=== PATIENT | male | born 1945 | race Hispanic/Latino ===

== ENCOUNTER 2016-11-09 18:20 | Emergency (ER) | payer MEDICARE, OTHER ==
[2016-11-09 18:32] VITALS: BP 142/67; PULSE 78; RESP 16; TEMP 98.9; O2SAT 100
--- NOTE | 2016-11-09 19:04 | ED PDOC ---
HPI: General Adult Time Seen by Provider: 11/09/16 18:30 Chief Complaint (Nursing): Trauma Chief Complaint (Provider): ead injury History Per: Patient History/Exam Limitations: no limitations Additional Complaint(s): 71yo M in ED for eval of head injury occurred while in Hospital on ICU floor from slpped water. Pt had Dementia and CVA hx. Pt slipped landing on right side of body and right side of frontal aspect of head. negative for: nausea vomiting dizziness headache LOC vision change neck pain chest pain shortness of breath Past Medical History Reviewed: Historical Data, Nursing Documentation, Vital Signs Vital Signs: Last Vital Signs Temp 98.9 F 11/09/16 18:30 Pulse 78 11/09/16 18:30 Resp 16 11/09/16 18:30 BP 142/67 11/09/16 18:30 Pulse Ox 100 11/09/16 18:30 - Medical History PMH: CAD, Dementia, HTN - Family History Family History: States: No Known Family Hx - Allergies Allergies/Adverse Reactions: Allergies Allergy/AdvReac Type Severity Reaction Status Date / Time No Known Allergies Allergy Verified 11/09/16 18:27 Review of Systems ROS Statement: Except As Marked, All Systems Reviewed And Found Negative Constitutional: Negative for: Fever, Chills Neurological: Negative for: Weakness, Numbness, Incoordination, Change in Speech , Confusion, Seizures, Altered Mental Status, Headache, Dizziness Psych: Negative for: Withdrawal Physical Exam - Reviewed Nursing Documentation Reviewed: Yes Vital Signs Reviewed: Yes - Physical Exam Appears: Positive for: Well, Non-toxic, No Acute Distress Head Exam: Positive for: ATRAUMATIC, NORMAL INSPECTION, NORMOCEPHALIC Skin: Positive for: Normal Color, Warm Eye Exam: Positive for: EOMI, Normal appearance, PERRL Cardiovascular/Chest: Positive for: Regular Rate, Rhythm Respiratory: Positive for: CNT, Normal Breath Sounds Neurologic/Psych: Positive for: Alert, Oriented - ECG O2 Sat by Pulse Oximetry: 100 - Progress ED Course And Treament: PT states he feels well. d/c home with ice pack to area advised to use precaution and take only Tylenol for pain and if with nuero deficits to return to ED Medical Decision Making Medical Decision Making: Pt d/c home with instructions. Disposition - Clinical Impression Clinical Impression: Head injury - Patient ED Disposition Is Patient to be Admitted: No Counseled Patient/Family Regarding: Need For Followup - Disposition Disposition: Routine/Home Disposition Time: 20:18 Condition: GOOD Instructions: Head Injury (ED)
== END 2016-11-09 18:50 | disposition home or self-care (01) ==
LOC: H.ER 18:20
DX: S09.90XA Unspecified injury of head, initial encounter (principal); W01.0XXA Fall on same level from slipping, tripping and stumbling without subsequent striking against object, initial encounter; Y92.89 Other specified places as the place of occurrence of the external cause; F03.90 Unspecified dementia, unspecified severity, without behavioral disturbance, psychotic disturbance, mood disturbance, and anxiety; I10 Essential (primary) hypertension; I25.10 Atherosclerotic heart disease of native coronary artery without angina pectoris; Z86.73 Personal history of transient ischemic attack (TIA), and cerebral infarction without residual deficits

== ENCOUNTER 2017-03-06 19:17 | Inpatient (IN) | payer MEDICARE, OTHER ==
[2017-03-06] MEDS ORDERED: Albuterol-Ipratrop 3 mg / 0.5 (3 ml) UD INH STA ×2 (20:02)
[2017-03-06] MEDS ORDERED: Albuterol-Ipratrop 3 mg / 0.5 (3 ml) UD ONE ×2 (20:10→20:12)
[2017-03-06 20:38] LABS: BASO # 0.1 K/uL (0.0-0.2); BASO % 0.3 % (0.0-2.0); EOS % 0.1 % (0.0-4.0); HEMATOCRIT 44.2 % (35.0-51.0); LYMPH # 0.7 K/uL (1.0-4.3); LYMPH % 3.5 % (20.0-40.0); MEAN CELL VOLUME 89.9 fl (80.0-94.0); MEAN CORPUSCULAR HEMOGLOBIN 31.1 pg (27.0-31.0); MEAN CORPUSCULAR HGB CONC 34.6 g/dL (33.0-37.0); MONO # 1.3 K/uL (0.0-0.8); MONO % 6.1 % (0.0-10.0); NEUT # 18.8 K/uL (1.8-7.0); NRBC % 0.1 % (0.0-0.0); PLATELET COUNT 209 K/uL (130-400); RED CELL DISTRIBUTION WIDTH 13.5 % (11.5-14.5); WHITE BLOOD COUNT 20.9 K/uL (4.8-10.8)
[2017-03-06 20:45] LABS: PARTIAL THROMBOPLASTIN TIME 25.6 Seconds (25.6-37.1)
[2017-03-06 20:46] LABS: ALB/GLOB RATIO 1.4 (1.0-2.1); ALKALINE PHOSPHATASE 116 U/L (38-126); ALT/SGPT 138 U/L (21-72); AST/SGOT 72 U/L (17-59); BILIRUBIN,TOTAL 2.2 mg/dl (0.2-1.3); BLOOD UREA NITROGEN 19 mg/dl (9-20); CALCIUM 10.2 mg/dL (8.4-10.2); CARBON DIOXIDE 24 mmol/L (22-30); CHLORIDE 104 mmol/L (98-107); GFR AFRICAN-AMERICAN > 60; GLUCOSE,RANDOM 184 mg/dL (75-110); POTASSIUM 4.2 MMOL/L (3.6-5.0); SODIUM 141 mmol/l (132-148); TOTAL PROTEIN 7.5 G/DL (6.3-8.2)
[2017-03-06] MEDS ORDERED: Clindamycin 150 mg/mL Inj IV STA (20:46)
--- NOTE | 2017-03-06 20:54 | ED PDOC ---
HPI: SOB/CHF/COPD Time Seen by Provider: 03/06/17 19:30 Chief Complaint (Nursing): Weakness/Neurological Deficit Chief Complaint (Provider): Shortness of breath History Per: Family History/Exam Limitations: clinical condition (history limited due to patient demented state) Onset/Duration Of Symptoms: Days Current Symptoms Are (Timing): Still Present Associated Symptoms: Productive Cough Additional Complaint(s): Yaron Lee SR, a 72 year old male, who is largely bed bound with a past medical history of diabetes, dementia, chronic obstructive pulmonary disease and ALS is brought into the ED by his family for a cough. As per family, the cough has become worse over the past few days and has been associated with poor appetite. His family notes, that he is also short of breath at times. The family state that they had more reason for concern when they checked his diastolic blood pressure and it was noted to be in the thirties. Family also notes that the patient's urine has been dark. PMD: Dr. Colunga,Devin V Past Medical History Reviewed: Historical Data, Nursing Documentation, Vital Signs Vital Signs: Last Vital Signs Temp 97.8 F 03/07/17 00:00 Pulse 87 03/07/17 00:00 Resp 19 03/07/17 00:00 BP 131/66 03/07/17 00:00 Pulse Ox 95 03/07/17 00:00 - Medical History PMH: CAD, COPD, Dementia, Diabetes, HTN Other PMH: ALS - Surgical History Surgical History: No Surg Hx - Family History Family History: States: Unknown Family Hx - Living Arrangements Living Arrangements: With Family - Social History Current smoker - smoking cessation education provided: No Ex-Smoker (has not smoked in the last 12 months): No Alcohol: None Drugs: Denies - Home Medications Home Medications: Ambulatory Orders Medication Instructions Recorded Aspirin [Ecotrin] 81 mg PO DAILY 03/06/17 Metoprolol Succinate [Toprol XL] 50 mg PO DAILY 03/06/17 Rivastigmine 9.5 mg/24 hr [Exelon 1 gonzales TD DAILY 03/06/17 9.5 mg/24 hr Patch] glyBURIDE [Glynase Pres-Tab] 3 mg PO DAILY 03/06/17 - Allergies Allergies/Adverse Reactions: Allergies Allergy/AdvReac Type Severity Reaction Status Date / Time No Known Allergies Allergy Verified 03/06/17 20:40 Review of Systems ROS Statement: Except As Marked, All Systems Reviewed And Found Negative Constitutional: Positive for: Weakness, Other (poor appetite) Respiratory: Positive for: Cough, Shortness of Breath Physical Exam - Reviewed Nursing Documentation Reviewed: Yes Vital Signs Reviewed: Yes - Physical Exam Appears: Positive for: Non-toxic, No Acute Distress Head Exam: Positive for: ATRAUMATIC, NORMAL INSPECTION, NORMOCEPHALIC Skin: Positive for: Normal Color, Warm, Dry. Negative for: Rash Eye Exam: Positive for: Normal appearance, EOMI, PERRL ENT: Negative for: Normal ENT Inspection (mucous membranes dry) Neck: Positive for: Normal, Painless ROM, Supple Cardiovascular/Chest: Positive for: Regular Rate, Rhythm, Chest Non Tender. Negative for: Tachycardia Respiratory: Positive for: Wheezing (expiratory wheezing at the bases b/l). Negative for: Normal Breath Sounds, Rales, Rhonchi, Respiratory Distress Gastrointestinal/Abdominal: Positive for: Normal Exam, Bowel Sounds, Soft. Negative for: Tenderness, Guarding, Rebound Back: Positive for: Normal Inspection. Negative for: L CVA Tenderness, R CVA Tenderness Extremity: Positive for: Normal ROM, Other (atrophy of muscular tone, generalized weakness-chronic). Negative for: Tenderness, Deformity, Swelling Lymphatic: Positive for: Normal Exam. Negative for: Adenopathy Neurologic/Psych: Positive for: Alert, Oriented. Negative for: Motor/Sensory Deficits - Laboratory Results Result Diagrams: 03/06/17 20:29 03/06/17 20:29 - ECG O2 Sat by Pulse Oximetry: 95 (RA) Pulse Ox Interpretation: Normal Medical Decision Making Medical Decision Makin Initial Impression 72 y/o male presenting with dyspnea worsening functional status in setting of ALS and COPD Initial Plan: * EKG * B-type natriuretic * CMP * Lact Acid, Plasma * Troponin * CBC * PTT * Prothrombin Time * CXR * Cleocin 600mg IV * Albuterol 3ml INH * Rocephin 1gm NS 100ml IVPB * Blood culture * Peak Flow pre/post .Tx * Reevaluation 2044 - Update Labs reviewed show no clinically significant abnormalities with exception of elevated white blood cell count. CXR significant for right lower lobe and possible middle lobe infiltrates. In providers opinion patient may have had aspiration earlier. Patient will be given antibiotics for pneumonia. Dr. Colunga referred case to hospitalist service. Diagnosis: Pneumonia Condition: Stable Family has requested a home hospice consultation which has been communicated to Dr. Herring Scribe Attestation Documented by Kim Beltre acting as a scribe for Alcides Arshad MD. Provider Attestation All medical record entries made by the Scribe were at my direction and personally dictated by me. I have reviewed the chart and agree that the record accurately reflects my personal performance of the history, physical exam, medical decision making, and the department course for this patient. I have also personally directed, reviewed, and agree with the discharge instructions and disposition. Disposition - Clinical Impression Clinical Impression: Pneumonia, ALS (amyotrophic lateral sclerosis), COPD (chronic obstructive pulmonary disease) - Patient ED Disposition Is Patient to be Admitted: Yes Discussed With DrMarlo: Devin Colunga (Dr Herring) Doctor Will See Patient In The: Hospital Counseled Patient/Family Regarding: Studies Performed, Diagnosis - Disposition Disposition Time: 20:45 Condition: FAIR - Pt Status Changed To: Hospital Disposition Of: Inpatient - Admit Certification Admit to Inpatient:: After my assessment, the patient will require hospitalization for at least two midnights. This is because of the severity of symptoms shown, intensity of services needed, and/or the medical risk in this patient being treated as an outpatient.
[2017-03-06] MEDS ORDERED: Azithromycin 500 MG in Sodium Chloride 0.9% 250 ML IVPB STA (20:55)
[2017-03-06] MEDS ORDERED: Clindamycin 600mg/50ml NS 600 MG/50 ML BAG IVPB SCH (21:00)
[2017-03-06] MEDS ORDERED: cefTRIAXone 1 gm in cefTRIAXone IV 1 gm in Dextros 50 ML IVPB STA (21:15)
[2017-03-06] MEDS ORDERED: cefTRIAXone IV 1 gm in Dextros 50 ML IVPB STA (21:15)
--- NOTE | 2017-03-06 21:30 | CP.PCM.HP ---
History of Present Illness - History of Present Illness History of Present Illness: Chief Complaint: Coughing/Lethargy/ low blood pressure The patient was seen and examined in the ED with the Family present HPI: The Hx was obtained from the family as the patient is non verbal. He is a 72 years old male with hx of ALS, Dementia, COPD, and DM II and is bed bound. the family referred that the patient's cough has become worse over the past days and he has difficulty to swallow. On the day of admission the patient appeared lethargic with diaphoresis. The blood Pressure taken at that time was low with a DBP of 30mmHg associated with SOB. The EMS was called and the patient was brought to the ED. No fever, diarrhea. PMH: CAD; COPD; ALS; Dementia; HTN; DM II; PSH: Arthroscopic surgery to both knees; Rods and pins in the Right leg; Cardio cath with no stents placed SH: No illegal drug use; Never smoked; Alcohol use in the past; Live with the Family; Retired FH: No known family Hx Allergies: NKDA Medication: Reviewed Present on Admission - Present on Admission Any Indicators Present on Admission: No History of DVT/PE: No History of Uncontrolled Diabetes: No Urinary Catheter: No Decubitus Ulcer Present: No Review of Systems - Review of Systems Review of Systems: Review of systems is limited as the patient is non verbal with dementia - Respiratory Respiratory: Cough, Dyspnea Past Patient History - Past Medical History & Family History Past Medical History?: Yes - Past Social History Smoking Status: Never Smoked Chewing Tobacco Use: No Cigar Use: No Alcohol: None Drugs: Denies Home Situation {Lives}: With Family - CARDIAC Hx Hypertension: Yes - PULMONARY Hx Chronic Obstructive Pulmonary Disease (COPD): Yes - NEUROLOGICAL Hx Dementia: Yes Other/Comment: ALS - HEENT Hx HEENT Problems: No - RENAL Hx Chronic Kidney Disease: No - ENDOCRINE/METABOLIC Hx Diabetes Mellitus Type 2: Yes - HEMATOLOGICAL/ONCOLOGICAL Hx Blood Disorders: No - INTEGUMENTARY Hx Dermatological Problems: No - MUSCULOSKELETAL/RHEUMATOLOGICAL Hx Musculoskeletal Disorders: No - GASTROINTESTINAL Hx Gastrointestinal Disorders: No - GENITOURINARY/GYNECOLOGICAL Hx Genitourinary Disorders: No - PSYCHIATRIC Hx Psychophysiologic Disorder: No Hx Substance Use: No - SURGICAL HISTORY Hx Surgeries: Yes Hx Angioplasty: Yes - ANESTHESIA Hx Anesthesia: Yes Hx Anesthesia Reactions: No Meds Allergies/Adverse Reactions: Allergies Allergy/AdvReac Type Severity Reaction Status Date / Time No Known Allergies Allergy Verified 03/06/17 20:40 Physical Exam - Constitutional Appears: No Acute Distress - Head Exam Head Exam: ATRAUMATIC, NORMAL INSPECTION, NORMOCEPHALIC - Eye Exam Eye Exam: EOMI, Normal appearance Pupil Exam: NORMAL ACCOMODATION, PERRL - ENT Exam ENT Exam: Mucous Membranes Moist, Normal External Ear Exam - Neck Exam Neck exam: Positive for: Full Rom, Normal Inspection. Negative for: Lymphadenopathy, Tenderness - Respiratory Exam Additional comments: Transmitted breath sounds bilaterally - Cardiovascular Exam Cardiovascular Exam: REGULAR RHYTHM, RRR, +S1, +S2. absent: Gallop, JVD - GI/Abdominal Exam GI & Abdominal Exam: Normal Bowel Sounds, Soft. absent: Mass, Organomegaly, Tenderness - Rectal Exam Rectal Exam: Deferred - Extremities Exam Extremities exam: Positive for: normal inspection. Negative for: joint swelling , pedal edema - Back Exam Back exam: NORMAL INSPECTION - Neurological Exam Additional comments: Non verbal, no facial droop, moves both upper extremitiesNot moving the lower extremities at this time, Cannot follow commands. - Psychiatric Exam Psychiatric exam: Flat Affect - Skin Skin Exam: Dry, Intact, Normal Color, Warm Results - Vital Signs Recent Vital Signs: Last Vital Signs Temp 97.2 F L 03/06/17 20:53 Pulse 85 03/06/17 20:53 Resp 18 03/06/17 20:53 BP 118/75 03/06/17 20:53 Pulse Ox 95 03/06/17 21:26 - Labs Result Diagrams: 03/06/17 20:29 03/06/17 20:29 Labs: Laboratory Results - last 24 hr 03/06/17 03/06/17 03/06/17 19:48 20:29 20:29 WBC 20.9 H D RBC 4.91 Hgb 15.3 Hct 44.2 MCV 89.9 MCH 31.1 H MCHC 34.6 RDW 13.5 Plt Count 209 MPV 9.0 Neut % (Auto) 90.0 H Lymph % (Auto) 3.5 L Graham % (Auto) 6.1 Eos % (Auto) 0.1 Baso % (Auto) 0.3 Neut # 18.8 H Lymph # 0.7 L Graham # 1.3 H Eos # 0.0 Baso # 0.1 PT INR APTT Sodium 141 Potassium 4.2 Chloride 104 Carbon Dioxide 24 Anion Gap 17 BUN 19 Creatinine 0.8 Est GFR ( Amer) > 60 Est GFR (Non-Af Amer) > 60 POC Glucose (mg/dL) 187 H Random Glucose 184 H Lactic Acid Calcium 10.2 Total Bilirubin 2.2 H AST 72 H ALT 138 H D Alkaline Phosphatase 116 Troponin I < 0.0120 NT-Pro-B Natriuret Pep 122 Total Protein 7.5 Albumin 4.3 Globulin 3.1 Albumin/Globulin Ratio 1.4 03/06/17 03/06/17 20:29 20:29 WBC RBC Hgb Hct MCV MCH MCHC RDW Plt Count MPV Neut % (Auto) Lymph % (Auto) Graham % (Auto) Eos % (Auto) Baso % (Auto) Neut # Lymph # Graham # Eos # Baso # PT 12.2 INR 1.1 APTT 25.6 Sodium Potassium Chloride Carbon Dioxide Anion Gap BUN Creatinine Est GFR ( Amer) Est GFR (Non-Af Amer) POC Glucose (mg/dL) Random Glucose Lactic Acid 2.0 Calcium Total Bilirubin AST ALT Alkaline Phosphatase Troponin I NT-Pro-B Natriuret Pep Total Protein Albumin Globulin Albumin/Globulin Ratio - EKG Data EKG comments: NSR with artifact 86/min - Imaging and Cardiology Chest x-ray Status: Image reviewed by me Additional comment: RLL infiltrate Assessment & Plan - Assessment and Plan (Free Text) Assessment: #. Aspiration pneumonia #. Leukocytosis 3. DM II with hyperglycemia #. Dementia #. ALS Plan: 72 years old male with hx of ALS, Dementia, COPD, and DM II and is bed bound. The family referred that the patient's cough has become worse over the past days and he has difficulty to swallow. On the day of admission he appeared lethargic with diaphoresis, the blood Pressure taken at that time was low with a DBP of 30mmHg associated with SOB. The EMS was called and the patient was brought to the ED. No fever, diarrhea. #. Aspiration pneumonia - Consult Dr knowles Pulmonary - Consult Dr Washington ID - Swallow Evaluation - Duoneb - Azithromycin - Ceftriaxone - Vancomycin - follow Blood and urine coutures - #. Leukocytosis - follow WBC #. DM II with hyperglycemia - Aspart Insulin Sliding scale according to Accucheck - Glyburide - HbA1c #. Dementia - Rivastigmine #. ALS - Supportive treatment - PT/OT - Palliative consult - Hospice consult #. CAD - consult Dr Colunga Cardiology - ASA #. DVT prophylaxis with SCD and Lovenox #. Code Status: Full - Date & Time Date: 03/06/17 Time: 21:30
[2017-03-06] MEDS ORDERED: Sodium Chloride 0.9% 1,000 ML IV STA (21:36)
[2017-03-06 21:41] LABS: NEUTROPHIL 94 % (42-75); REACTIVE LYMPHOCYTES 1 % (0-0); TOTAL CELLS COUNTED 100
[2017-03-06] MEDS ORDERED: cefTRIAXone IV 1 gm in Dextros 50 ML IVPB ONE (22:08)
[2017-03-06] MEDS ORDERED: Dextrose 5%/0.45% NS 1,000 ML IV SCH (23:15)
[2017-03-07] MEDS ORDERED: Clindamycin 600mg/50ml NS 600 MG/50 ML BAG IVPB STA (01:26)
[2017-03-07] MEDS: Dextrose 5%/0.45% NS 1,000 ML IV SCH ×4 (02:24→22:16)
[2017-03-07] MEDS: Albuterol-Ipratrop 3 mg / 0.5 (3 ml) UD INH SCH ×4 (02:48→19:11)
[2017-03-07] MEDS ORDERED: Insulin Lispro (humaLOG) 100 Units/ml Inj SC SCH (03:15)
[2017-03-07 06:27] LABS: ALB/GLOB RATIO 1.4 (1.0-2.1); ALKALINE PHOSPHATASE 108 U/L (38-126); ALT/SGPT 118 U/L (21-72); AST/SGOT 53 U/L (17-59); BILIRUBIN,TOTAL 2.3 mg/dl (0.2-1.3); BLOOD UREA NITROGEN 17 mg/dl (9-20); CALCIUM 9.8 mg/dL (8.4-10.2); CARBON DIOXIDE 24 mmol/L (22-30); CHLORIDE 107 mmol/L (98-107); GFR AFRICAN-AMERICAN > 60; GLUCOSE,RANDOM 164 mg/dL (75-110); POTASSIUM 3.6 MMOL/L (3.6-5.0); SODIUM 142 mmol/l (132-148)
[2017-03-07 06:28] LABS: BASO # 0.1 K/uL (0.0-0.2); BASO % 0.5 % (0.0-2.0); HEMATOCRIT 43.4 % (35.0-51.0); LYMPH # 1.2 K/uL (1.0-4.3); LYMPH % 6.7 % (20.0-40.0); MEAN CELL VOLUME 89.4 fl (80.0-94.0); MEAN CORPUSCULAR HEMOGLOBIN 30.6 pg (27.0-31.0); MEAN CORPUSCULAR HGB CONC 34.3 g/dL (33.0-37.0); MONO # 1.1 K/uL (0.0-0.8); MONO % 6.1 % (0.0-10.0); NEUT # 16.1 K/uL (1.8-7.0); NEUT % 86.7 % (50.0-75.0); NRBC % 0.1 % (0.0-0.0); RED CELL DISTRIBUTION WIDTH 13.6 % (11.5-14.5); WHITE BLOOD COUNT 18.6 K/uL (4.8-10.8)
[2017-03-07] MEDS: Insulin Lispro (humaLOG) 100 Units/ml Inj SC SCH ×3 (06:39→17:24)
--- NOTE | 2017-03-07 07:59 | CP.PCM.PN ---
Subjective - Date & Time of Evaluation Date of Evaluation: 03/07/17 Time of Evaluation: 07:59 - Subjective Subjective: patient seen and examined at bedside for likely aspiration pneumonia. Discussed with Drs. Strong and Keanu, patient has rapidly progressive dementia, bed bound, mildly verbal, dysarthric. Patient is HD stable, tolerating IV RX well. no apparent distress. Objective - Vital Signs/Intake and Output Vital Signs (last 24 hours): Temp Pulse Resp BP Pulse Ox 98.1 F 109 H 20 109/69 94 L 03/07/17 07:47 03/07/17 07:47 03/07/17 07:47 03/07/17 07:47 03/07/17 07:47 Physical exam: Constitutional- BEDBOUND, NONVERBAL awake, alert. Head- NCAT, PERRL Eye- PERRL, normal accommodation ENT- normal exam, MMM. Neck- normal inspection, supple, no JVD Respiratory- CTAB, no wheezes rales rhonchi Cardiovascular- RRR, +S1, +S2 no MRG GI/Abdominal- normal bowel sounds, soft, no mass, no hsm Skin- warm, dry Extremities Exam- normal capillary refill, normal inspection Neurological Exam- BEDBOUND, NONVERBAL. Psych- unable to assess secondary to dementia - Medications Medications: Current Medications Albuterol/Ipratropium (Duoneb 3 Mg/0.5 Mg (3 Ml) Ud) 3 ml INH RQ6 DYLAN Last Admin: 03/07/17 07:47 Dose: 3 ml Aspirin (Ecotrin) 81 mg PO DAILY DYLAN Enoxaparin Sodium (Lovenox) 40 mg SC DAILY DYLAN PRN Reason: Protocol Home Med (Glyburide [Glynase Pres-Tab]) 3 mg PO DAILY [facility] Ceftriaxone Sodium (Rocephin Iv 1 Gm Duplex) 50 mls @ 50 mls/hr IVPB DAILY DYLAN PRN Reason: Protocol Azithromycin 500 mg/ Sodium (Chloride) 250 mls @ 250 mls/hr IVPB DAILY DYLAN PRN Reason: Protocol Vancomycin HCl 1 gm/ Sodium (Chloride) 250 mls @ 166.667 mls/hr IVPB Q12 DYLAN PRN Reason: Protocol Dextrose/Sodium Chloride (Dextrose 5%/0.45% Ns 1000 Ml) 1,000 mls @ 150 mls/hr IV .Q6H40M [facility] Stop: 03/07/17 23:08 Last Admin: 03/07/17 02:24 Dose: 150 mls/hr Insulin Human Lispro (Humalog) 0 units SC 0000,0600,1200,1800 DYLAN PRN Reason: Protocol Last Admin: 03/07/17 06:39 Dose: Not Given Metoprolol Succinate (Toprol Xl) 50 mg PO DAILY [facility] Rivastigmine (Exelon 9.5 Mg/24 Hr Patch) 1 patch TD DAILY [facility] Scopolamine (Transderm-Scop) 1 patch TD Q3D DYLAN Last Admin: 03/07/17 01:35 Dose: 1 patch - Labs Labs: 03/07/17 05:25 03/07/17 05:25 PT 12.2 Seconds (9.8-13.1) 03/06/17 20:29 INR 1.1 (0.9-1.2) 03/06/17 20:29 APTT 25.6 Seconds (25.6-37.1) 03/06/17 20:29 Assessment and Plan - Assessment and Plan (Free Text) Plan: 2 years old male with hx of ALS, Dementia, COPD, and DM II and is bed bound. The family referred that the patient's cough has become worse over the past days and he has difficulty to swallow. On the day of admission he appeared lethargic with diaphoresis, the blood Pressure taken at that time was low with a DBP of 30mmHg associated with SOB. The EMS was called and the patient was brought to the ED. No fever, diarrhea. #. Aspiration pneumonia LLL - Consult Dr strong Pulmonary - Consult Dr Washington ID - Swallow Evaluation - Duoneb - Azithromycin, ceftriaxone, vancomycin adjusted to UNASYN today for aspiration pneumonia - follow Blood and urine coutures - Sputum cx ordered today #. Leukocytosis - follow WBC - likely from pna #. DM II with hyperglycemia - Aspart Insulin Sliding scale according to Accucheck - Glyburide - HbA1c #. Dementia - Rivastigmine - Neuro cx Dr. Le #. ALS - Supportive treatment - PT/OT - Palliative consult - Hospice consult - Neuro cx, Dr. Le #. CAD - consult Dr Colunga Cardiology - ASA #. DVT prophylaxis with SCD and Lovenox #. Code Status: Full
[2017-03-07] MEDS ORDERED: GLYBURIDE 3 MG PO SCH (09:00)
[2017-03-07] MEDS ORDERED: cefTRIAXone IV 1 gm in Dextros 50 ML IVPB SCH (09:00)
[2017-03-07] MEDS: Enoxaparin 40 mg Syringe SC SCH (09:07)
[2017-03-07] MEDS: Metoprolol Succinate 50 mg XL Tab PO SCH (09:09)
[2017-03-07] MEDS ORDERED: Sodium Chloride 3% for Inhalation 4 ML VIAL.NEB IH PRN (09:26)
--- NOTE | 2017-03-07 10:36 | CP.PCM.CON ---
History of Present Illness - History of Present Illness History of Present Illness: Yaron Lee is a pleasant 72 yo male with a PMHx of COPD, pneumonia, HTN, CAD, TIA, ALS, dementia, DMII, herpes zoster, hiatial hernia who presented to the ED with chronic cough and hypotension and admitted under the impression of aspiration pneumonia. On CXR, he was noted to have a RLL infiltrate with an elevated white count. We were consulted to evaluate and treat his aspiration pneumonia and assess his pulmonary function/stability. Treatment plan included: duonebs, Azithromycin, Cefriaxone, and Vancomycin. Patient was seen and evaluated at bedside lying at 45 degrees comfortably on 2L NC. He has a phlegmatous cough, which he is unable to produce sputum. He is alert and slightly responsive, however he is communicating non verbally. Review of Systems - Review of Systems Systems not reviewed;Unavailable: Dementia, Other (nonverbal) - Constitutional Constitutional: As Per HPI Past Patient History - Past Medical History & Family History Past Medical History?: Yes Pertinent Family History: Mother: CAD with bypass Father: CAD with bypass, cerebral aneurysm Brother: liver transplant, diabetes Sister: TIA Sister: COPD - Past Social History Smoking Status: Former Smoker Alcohol: None Drugs: Denies - CARDIAC Hx Cardiac Disorders: Yes (CAD) Hx Hypertension: Yes - PULMONARY Hx Chronic Obstructive Pulmonary Disease (COPD): Yes Hx Emphysema: Yes (Emphysematous changes ) Hx Pneumonia: Yes - NEUROLOGICAL Hx Neurological Disorder: Yes (ALS) Hx Dementia: Yes Hx Transient Ischemic Attacks (TIA): Yes - HEENT Hx HEENT Problems: No - RENAL Hx Chronic Kidney Disease: No - ENDOCRINE/METABOLIC Hx Diabetes Mellitus Type 2: Yes - HEMATOLOGICAL/ONCOLOGICAL Hx Blood Disorders: No - INTEGUMENTARY Hx Dermatological Problems: No - MUSCULOSKELETAL/RHEUMATOLOGICAL Hx Degenerative Joint Disease: Yes (bl knee) - GASTROINTESTINAL Hx Gastroesophageal Reflux: Yes (hiatus hernia) - GENITOURINARY/GYNECOLOGICAL Hx Genitourinary Disorders: No - PSYCHIATRIC Hx Psychophysiologic Disorder: No Hx Substance Use: No - SURGICAL HISTORY Hx Surgeries: Yes Hx Angioplasty: Yes Other/Comment: PTCA w/o stent x2; fracture R elbow; Arthroscopic surgery bl knee - ANESTHESIA Hx Anesthesia: Yes Hx Anesthesia Reactions: No Meds Allergies/Adverse Reactions: Allergies Allergy/AdvReac Type Severity Reaction Status Date / Time No Known Allergies Allergy Verified 03/06/17 20:40 - Medications Medications: Current Medications Albuterol/Ipratropium (Duoneb 3 Mg/0.5 Mg (3 Ml) Ud) 3 ml INH RQ6 [facility] Last Admin: 03/07/17 07:47 Dose: 3 ml Aspirin (Ecotrin) 81 mg PO DAILY [facility] Last Admin: 03/07/17 09:04 Dose: Not Given Enoxaparin Sodium (Lovenox) 40 mg SC DAILY [facility] PRN Reason: Protocol Last Admin: 03/07/17 09:07 Dose: 40 mg Home Med (Glyburide [Glynase Pres-Tab]) 3 mg PO DAILY [facility] Dextrose/Sodium Chloride (Dextrose 5%/0.45% Ns 1000 Ml) 1,000 mls @ 150 mls/hr IV .Q6H40M [facility] Stop: 03/07/17 23:08 Last Admin: 03/07/17 09:04 Dose: 150 mls/hr Ampicillin Sodium/Sulbactam (Sodium 3 gm/ Sodium Chloride) 100 mls @ 100 mls/ hr IVPB Q6 [facility] PRN Reason: Protocol Insulin Human Lispro (Humalog) 0 units SC 0000,0600,1200,1800 [facility] PRN Reason: Protocol Last Admin: 03/07/17 06:39 Dose: Not Given Metoprolol Succinate (Toprol Xl) 50 mg PO DAILY [facility] Last Admin: 03/07/17 09:09 Dose: Not Given Rivastigmine (Exelon 9.5 Mg/24 Hr Patch) 1 patch TD DAILY [facility] Last Admin: 03/07/17 09:05 Dose: 1 patch Scopolamine (Transderm-Scop) 1 patch TD Q3D [facility] Last Admin: 03/07/17 01:35 Dose: 1 patch Physical Exam - Constitutional Appears: No Acute Distress Additional comments: Resting in bed; nonverbal responsiveness - Eye Exam Eye Exam: EOMI - ENT Exam ENT Exam: Mucous Membranes Moist - Neck Exam Neck exam: Negative for: Lymphadenopathy, Thyromegaly Additional comments: trachea midline - Respiratory Exam Respiratory Exam: absent: Accessory Muscle Use, Chest Wall Tenderness, Wheezes Additional comments: Poor inspiratory effort on 2 L NC. phlegmatous, non productive cough; LLL crackles; diffuse Hyperresonance on anterior chest. - Cardiovascular Exam Cardiovascular Exam: REGULAR RHYTHM, +S1, +S2 Additional comments: distant heart sounds - GI/Abdominal Exam GI & Abdominal Exam: Normal Bowel Sounds, Soft. absent: Guarding, Mass - Neurological Exam Neurological exam: Alert, Altered Additional comments: Nonverbally responsive Results - Vital Signs Recent Vital Signs: Last Vital Signs Temp 98.1 F 03/07/17 07:47 Pulse 109 H 03/07/17 09:09 Resp 20 03/07/17 07:47 BP 109/69 03/07/17 09:09 Pulse Ox 94 L 03/07/17 07:47 - Labs Result Diagrams: 03/07/17 05:25 03/07/17 05:25 Labs: Laboratory Results - last 24 hr 03/06/17 03/06/17 03/06/17 19:48 20:29 20:29 WBC 20.9 H D RBC 4.91 Hgb 15.3 Hct 44.2 MCV 89.9 MCH 31.1 H MCHC 34.6 RDW 13.5 Plt Count 209 MPV 9.0 Neut % (Auto) 90.0 H Lymph % (Auto) 3.5 L Cameron % (Auto) 6.1 Eos % (Auto) 0.1 Baso % (Auto) 0.3 Neut # 18.8 H Lymph # 0.7 L Cameron # 1.3 H Eos # 0.0 Baso # 0.1 Neutrophils % (Manual) 94 H Band Neutrophils % 1 Lymphocytes % (Manual) 3 L Reactive Lymphs % 1 H Monocytes % (Manual) 1 Platelet Estimate Normal RBC Morphology Normal PT INR APTT Sodium 141 Potassium 4.2 Chloride 104 Carbon Dioxide 24 Anion Gap 17 BUN 19 Creatinine 0.8 Est GFR ( Amer) > 60 Est GFR (Non-Af Amer) > 60 POC Glucose (mg/dL) 187 H Random Glucose 184 H Lactic Acid Calcium 10.2 Total Bilirubin 2.2 H AST 72 H ALT 138 H D Alkaline Phosphatase 116 Troponin I < 0.0120 NT-Pro-B Natriuret Pep 122 Total Protein 7.5 Albumin 4.3 Globulin 3.1 Albumin/Globulin Ratio 1.4 03/06/17 03/06/17 03/07/17 20:29 20:29 00:34 WBC RBC Hgb Hct MCV MCH MCHC RDW Plt Count MPV Neut % (Auto) Lymph % (Auto) Cameron % (Auto) Eos % (Auto) Baso % (Auto) Neut # Lymph # Cameron # Eos # Baso # Neutrophils % (Manual) Band Neutrophils % Lymphocytes % (Manual) Reactive Lymphs % Monocytes % (Manual) Platelet Estimate RBC Morphology PT 12.2 INR 1.1 APTT 25.6 Sodium Potassium Chloride Carbon Dioxide Anion Gap BUN Creatinine Est GFR ( Amer) Est GFR (Non-Af Amer) POC Glucose (mg/dL) Random Glucose Lactic Acid 2.0 2.3 H Calcium Total Bilirubin AST ALT Alkaline Phosphatase Troponin I NT-Pro-B Natriuret Pep Total Protein Albumin Globulin Albumin/Globulin Ratio 03/07/17 03/07/17 03/07/17 05:25 05:25 06:20 WBC 18.6 H RBC 4.86 Hgb 14.9 Hct 43.4 MCV 89.4 MCH 30.6 MCHC 34.3 RDW 13.6 Plt Count 196 MPV 10.0 Neut % (Auto) 86.7 H Lymph % (Auto) 6.7 L Cameron % (Auto) 6.1 Eos % (Auto) 0.0 Baso % (Auto) 0.5 Neut # 16.1 H Lymph # 1.2 Cameron # 1.1 H Eos # 0.0 Baso # 0.1 Neutrophils % (Manual) Band Neutrophils % Lymphocytes % (Manual) Reactive Lymphs % Monocytes % (Manual) Platelet Estimate RBC Morphology PT INR APTT Sodium 142 Potassium 3.6 Chloride 107 Carbon Dioxide 24 Anion Gap 16 BUN 17 Creatinine 0.7 L Est GFR ( Amer) > 60 Est GFR (Non-Af Amer) > 60 POC Glucose (mg/dL) 139 H Random Glucose 164 H Lactic Acid Calcium 9.8 Total Bilirubin 2.3 H AST 53 ALT 118 H Alkaline Phosphatase 108 Troponin I NT-Pro-B Natriuret Pep Total Protein 7.0 Albumin 4.0 Globulin 3.0 Albumin/Globulin Ratio 1.4 Assessment & Plan - Assessment and Plan (Free Text) Assessment: 1) Aspiration pneumonia -Continue with Unasyn -ID consult appreciated -Pending swallow evaluation -Pending sputum culture -Pending blood and urine Cx 2) Leukocytosis -Trend WBC 3) COPD -Duoneb 3mg/0.5 mg QID. -Albuterol Q4 PRN
--- NOTE | 2017-03-07 11:03 | RAD ---
HISTORY: cough COMPARISON: CT chest without contrast 01/23/2017 FINDINGS: LUNGS: Again seen are severe emphysematous changes in the upper lungs, worse on the right. There is confluent airspace disease in the right lower lobe. PLEURA: No significant pleural effusion identified, no pneumothorax apparent. CARDIOVASCULAR: Normal. OSSEOUS STRUCTURES: Calcific tendinitis on the right. The visualized bones are within normal limits for the patient's age. VISUALIZED UPPER ABDOMEN: Normal. OTHER FINDINGS: None. IMPRESSION: Confluent airspace disease in the right lower lobe may represent atelectasis however superimposed pneumonia cannot be excluded. Follow-up is advised. COPD.
--- NOTE | 2017-03-07 13:06 | CP.PCM.CON ---
History of Present Illness - History of Present Illness History of Present Illness: this 72-year-old man was brought to the emergency room by his because of a constant cough with shortness of breath. The patient has developed rapidly progressive dementia after couple of years of low grade cognitive dysfunction. The cognitive decline has abruptly accelerated over the last 3 months. Patient at this point is unable to stand up and walk unassisted and cannot function independently. He has severe difficulty in swallowing food and often tends to aspirate. The patient has a history of diabetes mellitus and hypertension and required coronary bypass graft surgery more than 15 years back. He has never manifested overt congestive cardiac failure. He was an ex-smoker. Physical examination shows an elderly man is awake but unable to communicate and cannot follow instructions. Afebrile with a pulse rate of 80 bpm regular with occasional premature beats. His blood pressure was 124/74 mmHg. His jugular venous pressure was not elevated. There was no edema over his lower extremities. A scar of sternotomy was evident. The first and second heart sounds were normal. There were gross crepitations followed his chest particularly pronounced in the infra scapular area. Abdomen was soft liver and spleen are not palpable. His electro-cardiogram showed sinus rhythm with nonspecific ST-T changes. There were no Q waves. Chest x-ray was suggestive of right lower lobe infiltrate. His CBC at admission showed leukocytosis with high neutrophil count which appears to be trending down. His BUN as well as creatinine and electrolytes were normal. His liver function was mildly abnormal. IMPRESSION:right lower lobe pneumonia most likely secondary to aspiration probably due to dysfunctional swallowing. Rapidly progressive dementia. Diabetes mellitus and hypertension with stable coronary artery disease and status post coronary bypass graft surgery. The patient is on appropriate IV antibiotic. A swallowing evaluation will be carried out if the patient can't cooperate. His prognosis looks poor and I have discussed this with the patient's . I have urged her to consider hospice care. Past Patient History - Past Medical History & Family History Past Medical History?: Yes - Past Social History Smoking Status: Former Smoker Alcohol: None Drugs: Denies - CARDIAC Hx Cardiac Disorders: Yes (CAD) Hx Hypertension: Yes - PULMONARY Hx Chronic Obstructive Pulmonary Disease (COPD): Yes Hx Emphysema: Yes (Emphysematous changes ) Hx Pneumonia: Yes - NEUROLOGICAL Hx Neurological Disorder: Yes (ALS) Hx Dementia: Yes Hx Transient Ischemic Attacks (TIA): Yes - HEENT Hx HEENT Problems: No - RENAL Hx Chronic Kidney Disease: No - ENDOCRINE/METABOLIC Hx Diabetes Mellitus Type 2: Yes - HEMATOLOGICAL/ONCOLOGICAL Hx Blood Disorders: No - INTEGUMENTARY Hx Dermatological Problems: No - MUSCULOSKELETAL/RHEUMATOLOGICAL Hx Degenerative Joint Disease: Yes (bl knee) - GASTROINTESTINAL Hx Gastroesophageal Reflux: Yes (hiatus hernia) - GENITOURINARY/GYNECOLOGICAL Hx Genitourinary Disorders: No - PSYCHIATRIC Hx Psychophysiologic Disorder: No Hx Substance Use: No - SURGICAL HISTORY Hx Surgeries: Yes Hx Angioplasty: Yes Other/Comment: PTCA w/o stent x2; fracture R elbow; Arthroscopic surgery bl knee - ANESTHESIA Hx Anesthesia: Yes Hx Anesthesia Reactions: No Meds Allergies/Adverse Reactions: Allergies Allergy/AdvReac Type Severity Reaction Status Date / Time No Known Allergies Allergy Verified 03/06/17 20:40 - Medications Medications: Current Medications Albuterol/Ipratropium (Duoneb 3 Mg/0.5 Mg (3 Ml) Ud) 3 ml INH RQ6 [facility] Last Admin: 03/07/17 07:47 Dose: 3 ml Aspirin (Ecotrin) 81 mg PO DAILY [facility] Last Admin: 03/07/17 09:04 Dose: Not Given Enoxaparin Sodium (Lovenox) 40 mg SC DAILY [facility] PRN Reason: Protocol Last Admin: 03/07/17 09:07 Dose: 40 mg Home Med (Glyburide [Glynase Pres-Tab]) 3 mg PO DAILY [facility] Dextrose/Sodium Chloride (Dextrose 5%/0.45% Ns 1000 Ml) 1,000 mls @ 150 mls/hr IV .Q6H40M [facility] Stop: 03/07/17 23:08 Last Admin: 03/07/17 09:04 Dose: 150 mls/hr Ampicillin Sodium/Sulbactam (Sodium 3 gm/ Sodium Chloride) 100 mls @ 100 mls/ hr IVPB Q6 [facility] PRN Reason: Protocol Insulin Human Lispro (Humalog) 0 units SC 0000,0600,1200,1800 [facility] PRN Reason: Protocol Last Admin: 03/07/17 12:45 Dose: Not Given Metoprolol Succinate (Toprol Xl) 50 mg PO DAILY [facility] Last Admin: 03/07/17 09:09 Dose: Not Given Rivastigmine (Exelon 9.5 Mg/24 Hr Patch) 1 patch TD DAILY [facility] Last Admin: 03/07/17 09:05 Dose: 1 patch Scopolamine (Transderm-Scop) 1 patch TD Q3D [facility] Last Admin: 03/07/17 01:35 Dose: 1 patch Results - Vital Signs Recent Vital Signs: Last Vital Signs Temp 98.1 F 03/07/17 07:47 Pulse 109 H 03/07/17 09:09 Resp 20 03/07/17 07:47 BP 109/69 03/07/17 09:09 Pulse Ox 94 L 03/07/17 07:47 - Labs Result Diagrams: 03/07/17 05:25 03/07/17 05:25 Labs: Laboratory Results - last 24 hr 03/06/17 03/06/17 03/06/17 19:48 20:29 20:29 WBC 20.9 H D RBC 4.91 Hgb 15.3 Hct 44.2 MCV 89.9 MCH 31.1 H MCHC 34.6 RDW 13.5 Plt Count 209 MPV 9.0 Neut % (Auto) 90.0 H Lymph % (Auto) 3.5 L Caswell % (Auto) 6.1 Eos % (Auto) 0.1 Baso % (Auto) 0.3 Neut # 18.8 H Lymph # 0.7 L Caswell # 1.3 H Eos # 0.0 Baso # 0.1 Neutrophils % (Manual) 94 H Band Neutrophils % 1 Lymphocytes % (Manual) 3 L Reactive Lymphs % 1 H Monocytes % (Manual) 1 Platelet Estimate Normal RBC Morphology Normal PT INR APTT Sodium 141 Potassium 4.2 Chloride 104 Carbon Dioxide 24 Anion Gap 17 BUN 19 Creatinine 0.8 Est GFR ( Amer) > 60 Est GFR (Non-Af Amer) > 60 POC Glucose (mg/dL) 187 H Random Glucose 184 H Hemoglobin A1c Lactic Acid Calcium 10.2 Total Bilirubin 2.2 H AST 72 H ALT 138 H D Alkaline Phosphatase 116 Troponin I < 0.0120 NT-Pro-B Natriuret Pep 122 Total Protein 7.5 Albumin 4.3 Globulin 3.1 Albumin/Globulin Ratio 1.4 03/06/17 03/06/17 03/07/17 20:29 20:29 00:34 WBC RBC Hgb Hct MCV MCH MCHC RDW Plt Count MPV Neut % (Auto) Lymph % (Auto) Caswell % (Auto) Eos % (Auto) Baso % (Auto) Neut # Lymph # Caswell # Eos # Baso # Neutrophils % (Manual) Band Neutrophils % Lymphocytes % (Manual) Reactive Lymphs % Monocytes % (Manual) Platelet Estimate RBC Morphology PT 12.2 INR 1.1 APTT 25.6 Sodium Potassium Chloride Carbon Dioxide Anion Gap BUN Creatinine Est GFR ( Amer) Est GFR (Non-Af Amer) POC Glucose (mg/dL) Random Glucose Hemoglobin A1c Lactic Acid 2.0 2.3 H Calcium Total Bilirubin AST ALT Alkaline Phosphatase Troponin I NT-Pro-B Natriuret Pep Total Protein Albumin Globulin Albumin/Globulin Ratio 03/07/17 03/07/17 03/07/17 05:25 05:25 05:25 WBC 18.6 H RBC 4.86 Hgb 14.9 Hct 43.4 MCV 89.4 MCH 30.6 MCHC 34.3 RDW 13.6 Plt Count 196 MPV 10.0 Neut % (Auto) 86.7 H Lymph % (Auto) 6.7 L [place] % (Auto) 6.1 Eos % (Auto) 0.0 Baso % (Auto) 0.5 Neut # 16.1 H Lymph # 1.2 Caswell # 1.1 H Eos # 0.0 Baso # 0.1 Neutrophils % (Manual) Band Neutrophils % Lymphocytes % (Manual) Reactive Lymphs % Monocytes % (Manual) Platelet Estimate RBC Morphology PT INR APTT Sodium 142 Potassium 3.6 Chloride 107 Carbon Dioxide 24 Anion Gap 16 BUN 17 Creatinine 0.7 L Est GFR ( Amer) > 60 Est GFR (Non-Af Amer) > 60 POC Glucose (mg/dL) Random Glucose 164 H Hemoglobin A1c 5.9 Lactic Acid Calcium 9.8 Total Bilirubin 2.3 H AST 53 ALT 118 H Alkaline Phosphatase 108 Troponin I NT-Pro-B Natriuret Pep Total Protein 7.0 Albumin 4.0 Globulin 3.0 Albumin/Globulin Ratio 1.4 03/07/17 03/07/17 06:20 10:53 WBC RBC Hgb Hct MCV MCH MCHC RDW Plt Count MPV Neut % (Auto) Lymph % (Auto) Cas[place] % (Auto) Eos % (Auto) Baso % (Auto) Neut # Lymph # [place]well # Eos # Baso # Neutrophils % (Manual) Band Neutrophils % Lymphocytes % (Manual) Reactive Lymphs % Monocytes % (Manual) Platelet Estimate RBC Morphology PT INR APTT Sodium Potassium Chloride Carbon Dioxide Anion Gap BUN Creatinine Est GFR ( Amer) Est GFR (Non-Af Amer) POC Glucose (mg/dL) 139 H 212 H Random Glucose Hemoglobin A1c Lactic Acid Calcium Total Bilirubin AST ALT Alkaline Phosphatase Troponin I NT-Pro-B Natriuret Pep Total Protein Albumin Globulin Albumin/Globulin Ratio
--- NOTE | 2017-03-07 15:52 | CON ---
DATE: 03/07/2017 CHIEF COMPLAINT: History of ALS/dementia shortness of breath. HISTORY OF PRESENT ILLNESS: This is a 72-year-old man with past medical history of COPD, hypertension, coronary artery disease, TIA, frontotemporal dementia-ALS, type 2 diabetes mellitus, came to the hospital because he was having worsening cough and difficultly swallowing over the past 3 days, very lethargic, diaphoretic and low diastolic and systolic blood pressures, found to have aspiration and lower lobe pneumonia, on antibiotics. Currently, he is on DuoNeb, azithromycin, vancomycin, seen by Pulmonary. He has cough and is unable to produce sputum. He is alert and slightly responsive, however, he communicates, is very hypophonic. He does have fasciculations on his tongue as well as his extremities. He is on Exelon patch with underlying dementia. No acute events overnight. PAST MEDICAL HISTORY: History of dementia, frontotemporal type. He has FTD, ALS, type 2 diabetes mellitus, COPD, cervicalgia, hypertension. REVIEW OF SYSTEMS: A 14-point review of systems is negative except in the HPI. ALLERGIES: NO KNOWN DRUG ALLERGIES. MEDICATIONS: Reviewed by nurse per reconciliation sheet. SOCIAL HISTORY: No illicit drug use, smoking or EtOH abuse. PHYSICAL EXAMINATION VITAL SIGNS: Temperature 98.1, pulse rate of 109, blood pressure 129/67, respiratory rate of 20, oxygen saturation 94% via room air. GENERAL: The patient is lying in bed, minimally verbal. HEENT: Head is atraumatic and normocephalic. PERRLA. Extraocular muscles intact. NECK: Supple. No JVD. No adenopathy noted. LUNGS: Decreased breath sounds bilaterally, has poor inspiratory effort on 2 L nasal cannula. Left lower lobe crackles. Diffuse hyperresonance on the anterior chest. HEART: Tachycardic, regular, S1 and S2, normal rate and rhythm. No murmurs, rubs, or gallops. ABDOMEN: Soft, nontender, and nondistended. Bowel sounds are present. EXTREMITIES: No clubbing. No cyanosis. Peripheral pulses 2+ bilaterally. NEUROLOGIC: The patient is alert and oriented to person and place, not much to month or year. Speech is hypophonic and minimally verbal. Attention span, thought process, insight, and judgement are slow, and he recalls 0/3 after 5 minutes. Cranial nerves II through XII are intact. Motor exam: Has fasciculations in his tongue as well as mostly in his upper extremities. Strength: He is very cachectic-looking and moves all extremities equally. No pronator drift seen. Sensory exam: Decreased light touch and pinprick up to the calves bilaterally. Decreased vibration of the toes. DTRs are 1+ throughout and absent at the ankles. Coordination: [id number] intact. Gait is deferred for now. LABORATORY DATA: Sodium 142, potassium 3.6, chloride 107, carbon dioxide 24, BUN of 17, creatinine 0.7, random glucose of 164. ASSESSMENT AND PLAN: This is a 72-year-old man who is well known to me and to my office with a past medical history of dementia, frontotemporal dementia type as well as amyotrophic lateral sclerosis, recently diagnosed frontotemporal dementia type; his frontotemporal dementia type and amyotrophic lateral sclerosis which is type of motor neuron disease and history of type 2 diabetes mellitus and chronic obstructive pulmonary disease, has rapidly declined over the past year where he has been having progressive weakness and poor gait and is mostly bed-bound. His dementia has gotten worse, which is consistent with frontotemporal dementia type and amyotrophic lateral sclerosis. He also has fasciculations on his upper extremities, mostly right biceps, triceps, deltoid and fasciculations on the tongue. He has severe congenitive issues and difficult to clear secretions and difficulty to swallow food. He came with worsening cough and difficulty to swallow and currently has developed an aspiration pneumonia. At this time, his aspiration pneumonia is secondary to poor cough and poor respiratory efforts from his underlying amyotrophic lateral sclerosis and frontotemporal dementia type. At this time, we would recommend: 1. Pulmonary evaluation as well as management with DuoNeb and antibiotics. 2. Palliative care consult given his FTD and ALS and his severe motor neuron disease with underlying dementia. 3. Physical therapy and occupational therapy, speech therapy and respiratory therapy. 4. Monitor electrolytes and correct accordingly and keep his systolic blood pressure between 120 to 130 and avoid diastolic drops and continue to monitor electrolytes and correct accordingly. Prognosis is overall poor. Continue with current present medical management. Derrick Le MD [facility] # [id number]
[2017-03-07] MEDS ORDERED: Azithromycin 500 MG in Sodium Chloride 0.9% 250 ML IVPB SCH (21:00)
[2017-03-08] MEDS: Albuterol-Ipratrop 3 mg / 0.5 (3 ml) UD INH SCH ×4 (01:02→19:15)
[2017-03-08 06:41] LABS: BASO # 0.1 K/uL (0.0-0.2); BASO % 0.5 % (0.0-2.0); EOS # 0.1 K/uL (0.0-0.7); EOS % 0.6 % (0.0-4.0); HEMATOCRIT 38.5 % (35.0-51.0); LYMPH # 1.2 K/uL (1.0-4.3); LYMPH % 9.9 % (20.0-40.0); MEAN CELL VOLUME 88.8 fl (80.0-94.0); MEAN PLATELET VOLUME 9.8 fl (7.2-11.7); MONO # 1.1 K/uL (0.0-0.8); MONO % 9.1 % (0.0-10.0); NEUT # 9.8 K/uL (1.8-7.0); NEUT % 79.9 % (50.0-75.0); NRBC % 0.1 % (0.0-0.0); RED CELL DISTRIBUTION WIDTH 13.5 % (11.5-14.5); WHITE BLOOD COUNT 12.3 K/uL (4.8-10.8)
[2017-03-08 06:48] LABS: BLOOD UREA NITROGEN 11 mg/dl (9-20); CALCIUM 9.6 mg/dL (8.4-10.2); CARBON DIOXIDE 26 mmol/L (22-30); GFR AFRICAN-AMERICAN > 60; GLUCOSE,RANDOM 145 mg/dL (75-110); POTASSIUM 3.3 MMOL/L (3.6-5.0); SODIUM 143 mmol/l (132-148)
[2017-03-08] MEDS: Metoprolol Succinate 50 mg XL Tab PO SCH (08:50)
[2017-03-08] MEDS: Enoxaparin 40 mg Syringe SC SCH (08:50)
[2017-03-08] MEDS: Insulin Lispro (humaLOG) 100 Units/ml Inj SC SCH ×4 (08:51→17:19)
[2017-03-08] MEDS ORDERED: Potassium Chloride 20 mEq/15 ml LIQ UD PO ONE (09:00)
--- NOTE | 2017-03-08 09:12 | CP.PCM.PN ---
Subjective - Date & Time of Evaluation Date of Evaluation: 03/08/17 Time of Evaluation: 08:40 - Subjective Subjective: Sleeping, easily arousable Unable to verbalise/communicate Afebrile, leucocytosis resolving, neutrophil count resolving HR 76 BPM, reg BP 126/70 mm Hg Spoke with speech therapist Salma torres was hampered by pt's inability to follow instructions (due to dementia) Aspiration occurs probably aggravated by ALS Blood Culture has grown "GM -ve rods" (idintification and senstivity awaited) Pt seems to be responding to present ABx Pts and children have met Hospice coordinators They are weighing their options Given the nature of his illness (FTD+ALS) his prognosis remains grim Potential for recurring aspiration remains high Have spoken with pt's at length re his prognosis and need for comfort care. Objective - Vital Signs/Intake and Output Vital Signs (last 24 hours): Temp Pulse Resp BP Pulse Ox 97.3 F L 72 20 150/73 100 03/08/17 07:54 03/08/17 07:54 03/08/17 07:54 03/08/17 08:50 03/08/17 07:54 - Medications Medications: Current Medications Albuterol/Ipratropium (Duoneb 3 Mg/0.5 Mg (3 Ml) Ud) 3 ml INH RQ6 [facility] Last Admin: 03/08/17 07:26 Dose: 3 ml Aspirin (Ecotrin) 81 mg PO DAILY [facility] Last Admin: 03/08/17 08:50 Dose: Not Given Enoxaparin Sodium (Lovenox) 40 mg SC DAILY [facility] PRN Reason: Protocol Last Admin: 03/08/17 08:50 Dose: 40 mg Home Med (Glyburide [Glynase Pres-Tab]) 3 mg PO DAILY [facility] Last Admin: 03/07/17 09:00 Dose: Not Given Ampicillin Sodium/Sulbactam (Sodium 3 gm/ Sodium Chloride) 100 mls @ 100 mls/ hr IVPB Q6 [facility] PRN Reason: Protocol Last Admin: 03/08/17 03:22 Dose: 100 mls/hr Insulin Human Lispro (Humalog) 0 units SC 0000,0600,1200,1800 [facility] PRN Reason: Protocol Last Admin: 03/08/17 08:51 Dose: Not Given Ketorolac Tromethamine (Toradol) 15 mg IVP Q6 [facility] PRN Reason: Pain, moderate (4-7) Last Admin: 03/08/17 00:52 Dose: 15 mg Metoprolol Succinate (Toprol Xl) 50 mg PO DAILY [facility] Last Admin: 03/08/17 08:50 Dose: Not Given Potassium Chloride (Potassium Chloride Oral Soln) 40 meq PO ONCE ONE Stop: 03/08/17 09:01 Rivastigmine (Exelon 9.5 Mg/24 Hr Patch) 1 patch TD DAILY [facility] Last Admin: 03/08/17 08:50 Dose: 1 patch Scopolamine (Transderm-Scop) 1 patch TD Q3D [facility] Last Admin: 03/07/17 01:35 Dose: 1 patch - Labs Labs: 03/08/17 05:30 03/08/17 05:30 PT 12.2 Seconds (9.8-13.1) 03/06/17 20:29 INR 1.1 (0.9-1.2) 03/06/17 20:29 APTT 25.6 Seconds (25.6-37.1) 03/06/17 20:29
--- NOTE | 2017-03-08 10:44 | CP.PCM.PN ---
<Jose Weston - Last Filed: 03/08/17 10:55> Subjective - Date & Time of Evaluation Date of Evaluation: 03/08/17 Time of Evaluation: 09:00 - Subjective Subjective: Mr Lee was seen and examined at bedside. He was resting on NC at 2L. Minimally responsive 2/2 lethargy. He remains afebrile with O2 Sat at 100% Trachea midline, phlegmatous bronchial breath sounds 2/2 diminished cough reflex. Peripheral lung sounds are clear. No wheezing heard. Blood culture positive for GNR: Continue with current abx of unasyn; WBC trending down to 12.3 Pending sputum and urine cultures. Pending swallow study. Was seen by hospice; pending recommendation/plan with family's involvement. COPD: continue with: Duoneb 3mg/0.5 mg QID and Albuterol Q4 PRN d/w Dr. Ligia Weston, PGY1 Objective - Vital Signs/Intake and Output Vital Signs (last 24 hours): Temp Pulse Resp BP Pulse Ox 97.3 F L 72 20 150/73 100 03/08/17 07:54 03/08/17 07:54 03/08/17 07:54 03/08/17 08:50 03/08/17 07:54 - Medications Medications: Current Medications Albuterol/Ipratropium (Duoneb 3 Mg/0.5 Mg (3 Ml) Ud) 3 ml INH RQ6 [facility] Last Admin: 03/08/17 07:26 Dose: 3 ml Aspirin (Ecotrin) 81 mg PO DAILY [facility] Last Admin: 03/08/17 08:50 Dose: Not Given Enoxaparin Sodium (Lovenox) 40 mg SC DAILY [facility] PRN Reason: Protocol Last Admin: 03/08/17 08:50 Dose: 40 mg Home Med (Glyburide [Glynase Pres-Tab]) 3 mg PO DAILY [facility] Last Admin: 03/07/17 09:00 Dose: Not Given Ampicillin Sodium/Sulbactam (Sodium 3 gm/ Sodium Chloride) 100 mls @ 100 mls/ hr IVPB Q6 [facility] PRN Reason: Protocol Last Admin: 03/08/17 10:32 Dose: 100 mls/hr Potassium Chloride 40 meq/ (Sodium Chloride) 1,020 mls @ 50 mls/hr IV .[id number] [facility] Stop: 03/09/17 09:32 Insulin Human Lispro (Humalog) 0 units SC 0000,0600,1200,1800 [facility] PRN Reason: Protocol Last Admin: 03/08/17 08:51 Dose: Not Given Ketorolac Tromethamine (Toradol) 15 mg IVP Q6 PRN PRN Reason: Pain, moderate (4-7) Last Admin: 03/08/17 00:52 Dose: 15 mg Metoprolol Succinate (Toprol Xl) 50 mg PO DAILY [facility] Last Admin: 03/08/17 08:50 Dose: Not Given Rivastigmine (Exelon 9.5 Mg/24 Hr Patch) 1 patch TD DAILY [facility] Last Admin: 03/08/17 08:50 Dose: 1 patch Scopolamine (Transderm-Scop) 1 patch TD Q3D [facility] Last Admin: 03/07/17 01:35 Dose: 1 patch - Labs Labs: 03/08/17 05:30 03/08/17 05:30 PT 12.2 Seconds (9.8-13.1) 03/06/17 20:29 INR 1.1 (0.9-1.2) 03/06/17 20:29 APTT 25.6 Seconds (25.6-37.1) 03/06/17 20:29 <Alexsander Strong - Last Filed: 03/08/17 11:00> Subjective - Subjective Subjective: Case discussed and findings reviewed on rounds. Agree with assessment and plan. Objective - Vital Signs/Intake and Output Vital Signs (last 24 hours): Temp Pulse Resp BP Pulse Ox 97.3 F L 72 20 150/73 100 03/08/17 07:54 03/08/17 07:54 03/08/17 07:54 03/08/17 08:50 03/08/17 07:54 - Medications Medications: Current Medications Albuterol/Ipratropium (Duoneb 3 Mg/0.5 Mg (3 Ml) Ud) 3 ml INH RQ6 [facility] Last Admin: 03/08/17 07:26 Dose: 3 ml Aspirin (Ecotrin) 81 mg PO DAILY [facility] Last Admin: 03/08/17 08:50 Dose: Not Given Enoxaparin Sodium (Lovenox) 40 mg SC DAILY [facility] PRN Reason: Protocol Last Admin: 03/08/17 08:50 Dose: 40 mg Home Med (Glyburide [Glynase Pres-Tab]) 3 mg PO DAILY [facility] Last Admin: 03/07/17 09:00 Dose: Not Given Ampicillin Sodium/Sulbactam (Sodium 3 gm/ Sodium Chloride) 100 mls @ 100 mls/ hr IVPB Q6 [facility] PRN Reason: Protocol Last Admin: 03/08/17 10:32 Dose: 100 mls/hr Potassium Chloride 40 meq/ (Sodium Chloride) 1,020 mls @ 50 mls/hr IV .[id number] [facility] Stop: 03/09/17 09:32 Insulin Human Lispro (Humalog) 0 units SC 0000,0600,1200,1800 [facility] PRN Reason: Protocol Last Admin: 03/08/17 08:51 Dose: Not Given Ketorolac Tromethamine (Toradol) 15 mg IVP Q6 PRN PRN Reason: Pain, moderate (4-7) Last Admin: 03/08/17 00:52 Dose: 15 mg Metoprolol Succinate (Toprol Xl) 50 mg PO DAILY [facility] Last Admin: 03/08/17 08:50 Dose: Not Given Rivastigmine (Exelon 9.5 Mg/24 Hr Patch) 1 patch TD DAILY [facility] Last Admin: 03/08/17 08:50 Dose: 1 patch Scopolamine (Transderm-Scop) 1 patch TD Q3D [facility] Last Admin: 03/07/17 01:35 Dose: 1 patch - Labs Labs: 03/08/17 05:30 03/08/17 05:30 PT 12.2 Seconds (9.8-13.1) 03/06/17 20:29 INR 1.1 (0.9-1.2) 03/06/17 20:29 APTT 25.6 Seconds (25.6-37.1) 03/06/17 20:29
--- NOTE | 2017-03-08 12:33 | PN ---
NEUROLOGY FOLLOWUP DATE: 03/08/2017 CHIEF COMPLAINT: Followup for the patient's history of ALS and respiratory distress. SUBJECTIVE: The patient was seen and examined at bedside. He was resting with nasal cannula of 2 liters, minimally and very lethargic. He remains afebrile. He has diminished cough reflex. Blood culture is positive for gram negative rods. He is on antibiotics such as Unasyn, was seen by hospice, pending recommendation and plan with family involvement. He is on DuoNeb and albuterol for his underlying COPD. His speech is baseline very hypophonic and he has fasciculations of his tongue as well as his right upper extremity. PAST MEDICAL HISTORY: Dementia, frontotemporal type. He has history of FTD, ALS, type 2 diabetes mellitus, COPD, cervicalgia, hypertension. REVIEW OF SYSTEMS: A 14-point review of systems is negative except in the HPI. ALLERGIES: NO KNOWN DRUG ALLERGIES. MEDICATIONS: Reviewed by nurse per reconciliation sheet. SOCIAL HISTORY: No illicit drug use, smoking or EtOH abuse. PHYSICAL EXAMINATION: VITAL SIGNS: Temperature 97.3, pulse rate of 72, blood pressure 150/72, respiratory rate of 20, oxygen saturation 100% via nasal cannula. GENERAL: The patient is lying in bed, in no acute distress. HEENT: Head is atraumatic and normocephalic. PERRLA. Extraocular muscles intact. NECK: Supple. No JVD. No adenopathy noted. LUNGS: Decreased breath sounds bilaterally. He has poor inspiratory effort, left lower lobe crackles. HEART: S1 and S2, normal rate and rhythm. No murmurs, rubs, or gallops. ABDOMEN: Soft, nontender, and nondistended. Bowel sounds are present. EXTREMITIES: No clubbing. No cyanosis. Peripheral pulses 2+ bilaterally. NEUROLOGIC: The patient is alert and oriented to person and place, not much to month or year. Recall after 5 minutes is 0/3. Poor attention span. Slow thought process. Speech is hypophonic and minimally verbal, very lethargic. Cranial nerves II through XII are intact. Motor exam: He has fasciculations on the tongue as well as his right upper extremities. Strength: He is very cachectic-looking. He moves all extremities equally. No pronator drift seen. Sensory exam: Light touch, pinprick, proprioception, and vibration is decreased up to the calves bilaterally. Decreased vibration of the toes. DTRs are 1+ throughout and absent at the ankles. Coordination: [id number] intact. Gait is deferred for now. LABORATORY DATA: Sodium is 143, potassium 3.3, chloride 107, carbon dioxide 26, BUN of 11, creatinine 0.7, random glucose 145. ASSESSMENT AND PLAN: This is a 72-year-old man who is well known to me from my office who has past medical history of dementia, frontotemporal type with amyotrophic lateral sclerosis and frontotemporal dementia, type 2 diabetes mellitus, chronic obstructive pulmonary disease. He has rapidly declined over the past. He has been having progressive weakness, poor inspiratory effort, poor cough reflex, poor gait and mostly bed-bound. His dementia has gotten worse, which is consistent with frontotemporal dementia type with amyotrophic lateral sclerosis. He has fasciculations in his right upper extremities in his biceps, triceps, and deltoid and fasciculations on his tongue. He has severe cognitive issues and difficultly to swallow his secretions as well as his food. He came in for worsening of cough, difficulty to swallow and has developed aspiration pneumonia. His aspiration pneumonia is secondary to poor cough and poor respiratory effort from underlying amyotrophic lateral sclerosis and frontotemporal dementia type. At this time, we would recommend: 1. Pulmonary toilet and respiratory therapy. 2. Continue with antibiotics as per ID as well as Pulmonary pneumonia. 3. Physical therapy and occupational therapy, speech therapy and respiratory therapy. 4. Monitor electrolytes and correct accordingly. 5. Keep blood pressure between 120 to 130 and avoid systolic drops. 6. Recommend comfort care at this time and family is making on decision on transfer of palliative care versus hospice. At this time, continue with current present medical management. Derrick Le MD
[2017-03-08] MEDS ORDERED: Barium Sulfate Susp 0.1% w/v, 0.1% w/w 450 mL Bottle PO ONE (13:43)
[2017-03-08 14:06] LABS: RBC URINE 5 /hpf (0-3); URINE BACTERIA RARE (<OCC); URINE BILIRUBIN SMALL (NEGATIVE); URINE BLOOD NEGATIVE (NEGATIVE); URINE COLOR AMBER (YELLOW); URINE GLUCOSE (UA) 50 mg/dL (Normal); URINE KETONE NEGATIVE (NEGATIVE); URINE LEUKOCYTE ESTERASE NEG Leu/uL (Negative); URINE PROTEIN 30 mg/dL (NEGATIVE); WBC URINE 5 /hpf (0-5)
--- NOTE | 2017-03-08 15:16 | RAD ---
PROCEDURE: Modified barium swallow with speech pathology HISTORY: r/o aspiration COMPARISON: None TECHNIQUE: Standard protocol for this study/examination. FINDINGS: Multiple consistencies of liquid and solid material were imbibed voluntarily by the patient. There is no evidence of penetration or aspiration. With liquids of varying consistencies there was pooling in the valleculae and piriform sinuses. There was delayed conversion from the oral to the pharyngeal phase of multiple components of this examination IMPRESSION: No evidence of aspiration or penetration.
--- NOTE | 2017-03-08 15:18 | CP.PCM.PN ---
Subjective - Date & Time of Evaluation Date of Evaluation: 03/08/17 Time of Evaluation: 14:00 - Subjective Subjective: Pt seen after he had Modified Barium swallow test No aspiration noted at bedside, discussed treatment plan, test results No fever today Leukocytosis trending down pt opens eyes to verbal stimuli , very minimal verbal output noted to cough occasionally while I was in the room Objective - Vital Signs/Intake and Output Vital Signs (last 24 hours): Temp Pulse Resp BP Pulse Ox 97.3 F L 72 20 150/73 100 03/08/17 07:54 03/08/17 07:54 03/08/17 07:54 03/08/17 08:50 03/08/17 07:54 - Medications Medications: Current Medications Albuterol/Ipratropium (Duoneb 3 Mg/0.5 Mg (3 Ml) Ud) 3 ml INH RQ6 [facility] Last Admin: 03/08/17 13:40 Dose: Not Given Aspirin (Ecotrin) 81 mg PO DAILY [facility] Last Admin: 03/08/17 08:50 Dose: Not Given Enoxaparin Sodium (Lovenox) 40 mg SC DAILY [facility] PRN Reason: Protocol Last Admin: 03/08/17 08:50 Dose: 40 mg Home Med (Glyburide [Glynase Pres-Tab]) 3 mg PO DAILY [facility] Last Admin: 03/07/17 09:00 Dose: Not Given Ampicillin Sodium/Sulbactam (Sodium 3 gm/ Sodium Chloride) 100 mls @ 100 mls/ hr IVPB Q6 [facility] PRN Reason: Protocol Last Admin: 03/08/17 10:32 Dose: 100 mls/hr Potassium Chloride 40 meq/ (Sodium Chloride) 1,020 mls @ 50 mls/hr IV .[id number] [facility] Stop: 03/09/17 09:32 Insulin Human Lispro (Humalog) 0 units SC 0000,0600,1200,1800 [facility] PRN Reason: Protocol Last Admin: 03/08/17 08:51 Dose: Not Given Ketorolac Tromethamine (Toradol) 15 mg IVP Q6 PRN PRN Reason: Pain, moderate (4-7) Last Admin: 03/08/17 00:52 Dose: 15 mg Metoprolol Succinate (Toprol Xl) 50 mg PO DAILY [facility] Last Admin: 03/08/17 08:50 Dose: Not Given Rivastigmine (Exelon 9.5 Mg/24 Hr Patch) 1 patch TD DAILY [facility] Last Admin: 03/08/17 08:50 Dose: 1 patch Scopolamine (Transderm-Scop) 1 patch TD Q3D [facility] Last Admin: 03/07/17 01:35 Dose: 1 patch - Labs Labs: 03/08/17 05:30 03/08/17 05:30 PT 12.2 Seconds (9.8-13.1) 03/06/17 20:29 INR 1.1 (0.9-1.2) 03/06/17 20:29 APTT 25.6 Seconds (25.6-37.1) 03/06/17 20:29 - Constitutional Appears: No Acute Distress, Chronically Ill - Head Exam Head Exam: NORMAL INSPECTION, NORMOCEPHALIC - Eye Exam Eye Exam: EOMI, Normal appearance Pupil Exam: NORMAL ACCOMODATION - ENT Exam ENT Exam: Mucous Membranes Dry, Normal External Ear Exam - Neck Exam Neck Exam: Full ROM. absent: Meningismus - Respiratory Exam Respiratory Exam: Rales, Rhonchi. absent: Wheezes, Respiratory Distress - Cardiovascular Exam Cardiovascular Exam: REGULAR RHYTHM, +S1, +S2 - GI/Abdominal Exam GI & Abdominal Exam: Soft, Normal Bowel Sounds. absent: Tenderness - Extremities Exam Extremities Exam: Normal Capillary Refill. absent: Calf Tenderness - Back Exam Back Exam: absent: CVA tenderness (L), CVA tenderness (R) - Neurological Exam Additional comments: lethargic follows only a few simple commands unable to fully assess motor strength - Psychiatric Exam Psychiatric exam: Flat Affect - Skin Skin Exam: Dry, Normal Color, Warm Assessment and Plan - Assessment and Plan (Free Text) Assessment: 72 years old male with hx of ALS, CAD, Dementia, COPD, and DM II and is bed bound. The patient was brought in bec of dyspnea and cough . Pt was also noted to have difficulty in swallowing. . On the day of admission he appeared lethargic with diaphoretic, dyspneic and slightly hypotensive. 1. Aspiration pneumonia - received 1 dose each of IV Ceftriaxone, Vanco , Clinda and Azithro in ED - now on Unasyn- will change to IV Zosyn for added anaerobic coverage and add Azithro for atypicals - Consult Dr knowles Pulmonary - Pt passed Modified Barium Swallow - Duoneb 2. Bacteremia, Gram negative rods change abx to IV Zosyn ff up ID and sensitivity 3. DM II with hyperglycemia - Aspart Insulin Sliding scale according to Accucheck - HbA1c - start Levemir 4. Dementia - cont Rivastigmine 5. ALS - Supportive treatment - PT/OT - Palliative consult - Hospice consult 6. CAD - consult Dr Colunga Cardiology - cont ASA #. DVT prophylaxis with SCD and Lovenox #. Code Status: Full, Surrogate decision maker - spouse Tiffanie
[2017-03-08 16:04] LABS: CHLORIDE 107 mmol/L (98-107)
[2017-03-08] MEDS: Piperacillin/Tazobact 3.375 GM in Sodium Chloride 0.9% 100 ML IVPB SCH (21:58)
[2017-03-08] MEDS: Insulin Detemir 100 Units/ml Inj SC SCH (22:57)
[2017-03-09] MEDS: Insulin Lispro (humaLOG) 100 Units/ml Inj SC SCH ×4 (00:13→17:04)
[2017-03-09] MEDS: Albuterol-Ipratrop 3 mg / 0.5 (3 ml) UD INH SCH ×4 (01:11→19:09)
[2017-03-09] MEDS: Piperacillin/Tazobact 3.375 GM in Sodium Chloride 0.9% 100 ML IVPB SCH ×4 (04:00→21:14)
[2017-03-09 07:19] LABS: BASO # 0.1 K/uL (0.0-0.2); BASO % 0.7 % (0.0-2.0); EOS # 0.1 K/uL (0.0-0.7); HEMATOCRIT 39.2 % (35.0-51.0); LYMPH # 1.3 K/uL (1.0-4.3); LYMPH % 13.7 % (20.0-40.0); MEAN CELL VOLUME 88.9 fl (80.0-94.0); MEAN CORPUSCULAR HGB CONC 34.8 g/dL (33.0-37.0); MEAN PLATELET VOLUME 9.6 fl (7.2-11.7); NEUT # 7.2 K/uL (1.8-7.0); NEUT % 74.6 % (50.0-75.0); NRBC % 0.2 % (0.0-0.0); RED CELL DISTRIBUTION WIDTH 13.8 % (11.5-14.5); WHITE BLOOD COUNT 9.7 K/uL (4.8-10.8)
[2017-03-09 07:35] LABS: ALB/GLOB RATIO 1.3 (1.0-2.1); ALKALINE PHOSPHATASE 87 U/L (38-126); ALT/SGPT 73 U/L (21-72); AST/SGOT 32 U/L (17-59); BILIRUBIN,TOTAL 1.2 mg/dl (0.2-1.3); BLOOD UREA NITROGEN 9 mg/dl (9-20); CALCIUM 9.5 mg/dL (8.4-10.2); CARBON DIOXIDE 25 mmol/L (22-30); CHLORIDE 109 mmol/L (98-107); GFR AFRICAN-AMERICAN > 60; GLUCOSE,RANDOM 100 mg/dL (75-110); POTASSIUM 3.4 MMOL/L (3.6-5.0); SODIUM 143 mmol/l (132-148); TOTAL PROTEIN 5.9 G/DL (6.3-8.2)
--- NOTE | 2017-03-09 09:47 | CP.PCM.PN ---
Subjective - Date & Time of Evaluation Date of Evaluation: 03/09/17 Time of Evaluation: 09:45 - Subjective Subjective: patient seen and examined at bedside for aspiration pneumonia, ALS. Patient currently eating pured food with speech therapist. Tolerating well. Blood cultures did show gram-negative rods, awaiting culture results. Hemodynamically stable no acute distress. Objective - Vital Signs/Intake and Output Vital Signs (last 24 hours): Temp Pulse Resp BP Pulse Ox 98.6 F 63 20 130/79 96 03/09/17 08:03 03/09/17 08:03 03/09/17 08:03 03/09/17 08:03 03/09/17 08:03 Physical exam: Constitutional- cooperative, awake, alert. Head- NCAT, PERRL Eye- PERRL, normal accommodation ENT- normal exam, MMM. Neck- normal inspection, supple, no JVD Respiratory- CTAB, no wheezes rales rhonchi Cardiovascular- RRR, +S1, +S2 no MRG GI/Abdominal- normal bowel sounds, soft, no mass, no hsm Skin- warm, dry Extremities Exam- normal capillary refill, normal inspection Neurological Exam- alert, awake Psych- difficult to determine given patient's dysarthria and aphasia - Medications Medications: Current Medications Albuterol/Ipratropium (Duoneb 3 Mg/0.5 Mg (3 Ml) Ud) 3 ml INH RQ6 [facility] Last Admin: 03/09/17 07:31 Dose: 3 ml Aspirin (Ecotrin) 81 mg PO DAILY [facility] Last Admin: 03/08/17 08:50 Dose: Not Given Enoxaparin Sodium (Lovenox) 40 mg SC DAILY [facility] PRN Reason: Protocol Last Admin: 03/08/17 08:50 Dose: 40 mg Home Med (Glyburide [Glynase Pres-Tab]) 3 mg PO DAILY [facility] Last Admin: 03/07/17 09:00 Dose: Not Given Piperacillin Sod/Tazobactam (Sod 3.375 gm/ Sodium Chloride) 100 mls @ 100 mls/ hr IVPB Q6 [facility] PRN Reason: Protocol Last Admin: 03/09/17 04:00 Dose: 100 mls/hr Azithromycin 500 mg/ Sodium (Chloride) 250 mls @ 250 mls/hr IVPB DAILY [facility] PRN Reason: Protocol Insulin Detemir (Levemir) 4 units SC HS [facility] Last Admin: 03/08/17 22:57 Dose: 4 u Insulin Human Lispro (Humalog) 0 units SC 0000,0600,1200,1800 [facility] PRN Reason: Protocol Last Admin: 03/09/17 07:16 Dose: Not Given Ketorolac Tromethamine (Toradol) 15 mg IVP Q6 PRN PRN Reason: Pain, moderate (4-7) Last Admin: 03/08/17 00:52 Dose: 15 mg Metoprolol Succinate (Toprol Xl) 50 mg PO DAILY [facility] Last Admin: 03/08/17 08:50 Dose: Not Given Rivastigmine (Exelon 9.5 Mg/24 Hr Patch) 1 patch TD DAILY [facility] Last Admin: 03/08/17 08:50 Dose: 1 patch - Labs Labs: 03/09/17 06:25 03/09/17 06:25 PT 12.2 Seconds (9.8-13.1) 03/06/17 20:29 INR 1.1 (0.9-1.2) 03/06/17 20:29 APTT 25.6 Seconds (25.6-37.1) 03/06/17 20:29 Assessment and Plan - Assessment and Plan (Free Text) Plan: 72 years old male with hx of ALS, CAD, Dementia, COPD, and DM II and is bed bound. The patient was brought in bec of dyspnea and cough . Pt was also noted to have difficulty in swallowing. . On the day of admission he appeared lethargic with diaphoretic, dyspneic and slightly hypotensive. 1. Aspiration pneumonia - received 1 dose each of IV Ceftriaxone, Vanco , Clinda and Azithro in ED - now on Unasyn- will change to IV Zosyn for added anaerobic coverage and add Azithro for atypicals - Consult Dr knowles Pulmonary - Pt passed Modified Barium Swallow - Duoneb 2. Bacteremia, Gram negative rods change abx to IV Zosyn ff up ID and sensitivity, pending sensitivities today 3. DM II with hyperglycemia - Aspart Insulin Sliding scale according to Accucheck - HbA1c - start Levemir 4. Dementia - cont Rivastigmine 5. ALS - Supportive treatment - PT/OT - Palliative consult - Hospice consult 6. CAD - consult Dr Colunga Cardiology - cont ASA #. DVT prophylaxis with SCD and Lovenox #. Code Status: Full, Surrogate decision maker - spouse Tiffanie
[2017-03-09] MEDS: Metoprolol Succinate 50 mg XL Tab PO SCH (10:16)
[2017-03-09] MEDS: Enoxaparin 40 mg Syringe SC SCH (10:17)
--- NOTE | 2017-03-09 10:17 | CP.PCM.PN ---
Subjective - Date & Time of Evaluation Date of Evaluation: 03/09/17 Time of Evaluation: 08:55 - Subjective Subjective: General condition unchanged Pt still unable to communicate Bronchial Secretions ++ Afebrile with HR 74 BPM, reg BP 136/74 mm Hg Leucocytosis has resolved Renal function normal Still hypoK+ (3.4 mEq/L) On IVABx Have spoken with the wifr Re: Hospice care Objective - Vital Signs/Intake and Output Vital Signs (last 24 hours): Temp Pulse Resp BP Pulse Ox 98.6 F 63 20 130/79 96 03/09/17 08:03 03/09/17 08:03 03/09/17 08:03 03/09/17 08:03 03/09/17 08:03 - Medications Medications: Current Medications Albuterol/Ipratropium (Duoneb 3 Mg/0.5 Mg (3 Ml) Ud) 3 ml INH RQ6 [facility] Last Admin: 03/09/17 07:31 Dose: 3 ml Aspirin (Ecotrin) 81 mg PO DAILY [facility] Last Admin: 03/08/17 08:50 Dose: Not Given Enoxaparin Sodium (Lovenox) 40 mg SC DAILY [facility] PRN Reason: Protocol Last Admin: 03/08/17 08:50 Dose: 40 mg Home Med (Glyburide [Glynase Pres-Tab]) 3 mg PO DAILY [facility] Last Admin: 03/07/17 09:00 Dose: Not Given Piperacillin Sod/Tazobactam (Sod 3.375 gm/ Sodium Chloride) 100 mls @ 100 mls/ hr IVPB Q6 [facility] PRN Reason: Protocol Last Admin: 03/09/17 04:00 Dose: 100 mls/hr Azithromycin 500 mg/ Sodium (Chloride) 250 mls @ 250 mls/hr IVPB DAILY [facility] PRN Reason: Protocol Insulin Detemir (Levemir) 4 units SC HS [facility] Last Admin: 03/08/17 22:57 Dose: 4 u Insulin Human Lispro (Humalog) 0 units SC 0000,0600,1200,1800 [facility] PRN Reason: Protocol Last Admin: 03/09/17 07:16 Dose: Not Given Ketorolac Tromethamine (Toradol) 15 mg IVP Q6 PRN PRN Reason: Pain, moderate (4-7) Last Admin: 03/08/17 00:52 Dose: 15 mg Metoprolol Succinate (Toprol Xl) 50 mg PO DAILY [facility] Last Admin: 03/08/17 08:50 Dose: Not Given Rivastigmine (Exelon 9.5 Mg/24 Hr Patch) 1 patch TD DAILY [facility] Last Admin: 03/08/17 08:50 Dose: 1 patch - Labs Labs: 03/09/17 06:25 03/09/17 06:25 PT 12.2 Seconds (9.8-13.1) 03/06/17 20:29 INR 1.1 (0.9-1.2) 03/06/17 20:29 APTT 25.6 Seconds (25.6-37.1) 03/06/17 20:29
[2017-03-09] MEDS: Azithromycin 500 MG in Sodium Chloride 0.9% 250 ML IVPB SCH (18:58)
[2017-03-09 20:40] LABS: BLOOD UREA NITROGEN 8 mg/dl (9-20); CALCIUM 9.5 mg/dL (8.4-10.2); CARBON DIOXIDE 26 mmol/L (22-30); CHLORIDE 108 mmol/L (98-107); GFR AFRICAN-AMERICAN > 60; GLUCOSE,RANDOM 134 mg/dL (75-110); POTASSIUM 3.8 MMOL/L (3.6-5.0); SODIUM 142 mmol/l (132-148)
[2017-03-09] MEDS ORDERED: Sodium Chloride 0.9% 1,000 ML IV SCH (21:15)
[2017-03-09] MEDS: Insulin Detemir 100 Units/ml Inj SC SCH (22:01)
[2017-03-10] MEDS: Insulin Lispro (humaLOG) 100 Units/ml Inj SC SCH ×3 (01:14→12:55)
[2017-03-10] MEDS: Albuterol-Ipratrop 3 mg / 0.5 (3 ml) UD INH SCH ×4 (01:26→19:37)
[2017-03-10] MEDS: Piperacillin/Tazobact 3.375 GM in Sodium Chloride 0.9% 100 ML IVPB SCH ×5 (03:14→21:15)
[2017-03-10 07:10] LABS: BLOOD UREA NITROGEN 8 mg/dl (9-20); CALCIUM 9.4 mg/dL (8.4-10.2); CARBON DIOXIDE 25 mmol/L (22-30); CHLORIDE 107 mmol/L (98-107); GFR AFRICAN-AMERICAN > 60; GLUCOSE,RANDOM 118 mg/dL (75-110); POTASSIUM 4.1 MMOL/L (3.6-5.0); SODIUM 143 mmol/l (132-148)
[2017-03-10 07:39] LABS: BASO # 0.1 K/uL (0.0-0.2); BASO % 0.9 % (0.0-2.0); EOS # 0.2 K/uL (0.0-0.7); EOS % 1.7 % (0.0-4.0); HEMATOCRIT 39.4 % (35.0-51.0); LYMPH # 1.5 K/uL (1.0-4.3); LYMPH % 16.4 % (20.0-40.0); MEAN CELL VOLUME 89.2 fl (80.0-94.0); MEAN CORPUSCULAR HEMOGLOBIN 31.3 pg (27.0-31.0); MEAN PLATELET VOLUME 9.1 fl (7.2-11.7); MONO % 11.1 % (0.0-10.0); NEUT # 6.2 K/uL (1.8-7.0); NEUT % 69.9 % (50.0-75.0); NRBC % 0.1 % (0.0-0.0); RED CELL DISTRIBUTION WIDTH 13.7 % (11.5-14.5); WHITE BLOOD COUNT 8.9 K/uL (4.8-10.8)
[2017-03-10] MEDS: Azithromycin 500 MG in Sodium Chloride 0.9% 250 ML IVPB SCH (08:51)
[2017-03-10] MEDS: Enoxaparin 40 mg Syringe SC SCH (08:52)
[2017-03-10] MEDS: Metoprolol Succinate 50 mg XL Tab PO SCH (08:58)
--- NOTE | 2017-03-10 11:15 | CP.PCM.PN ---
Subjective - Date & Time of Evaluation Date of Evaluation: 03/10/17 Time of Evaluation: 11:15 - Subjective Subjective: Have discussed patients clinical condition with the family. He has apparently improved with resolution of the leukocytosis, but the CXR still shows some patchy infiltrate in the right lung base. Physical exam shows an inability to clear secretions from the airways. No audible wheezing or bronchial breathing. His family members relay the patient's wishes to not have aggressive interventions if there is no hope for improvement. They have decided that comfort measures alone are the most appropriate at this juncture. Objective - Vital Signs/Intake and Output Vital Signs (last 24 hours): Temp Pulse Resp BP Pulse Ox 98.5 F 76 20 149/74 95 03/10/17 08:15 03/10/17 08:15 03/10/17 08:15 03/10/17 08:58 03/10/17 08:15 - Medications Medications: Current Medications Albuterol/Ipratropium (Duoneb 3 Mg/0.5 Mg (3 Ml) Ud) 3 ml INH RQ6 [facility] Last Admin: 03/10/17 08:43 Dose: 3 ml Aspirin (Ecotrin) 81 mg PO DAILY [facility] Last Admin: 03/10/17 08:58 Dose: 81 mg Home Med (Glyburide [Glynase Pres-Tab]) 3 mg PO DAILY [facility] Last Admin: 03/07/17 09:00 Dose: Not Given Piperacillin Sod/Tazobactam (Sod 3.375 gm/ Sodium Chloride) 100 mls @ 100 mls/ hr IVPB Q6 [facility] PRN Reason: Protocol Last Admin: 03/10/17 09:07 Dose: 100 mls/hr Azithromycin 500 mg/ Sodium (Chloride) 250 mls @ 250 mls/hr IVPB DAILY [facility] PRN Reason: Protocol Last Admin: 03/10/17 08:51 Dose: 250 mls/hr Sodium Chloride (Sodium Chloride 0.9%) 1,000 mls @ 50 mls/hr IV .Q20H [facility] Stop: 03/10/17 21:08 Last Admin: 03/09/17 21:13 Dose: 50 mls/hr Insulin Detemir (Levemir) 4 units SC HS [facility] Last Admin: 03/09/17 22:01 Dose: 4 u Insulin Human Lispro (Humalog) 0 units SC 0000,0600,1200,1800 [facility] PRN Reason: Protocol Last Admin: 03/10/17 06:50 Dose: Not Given Ketorolac Tromethamine (Toradol) 15 mg IVP Q6 [facility] PRN Reason: Pain, moderate (4-7) Last Admin: 03/10/17 02:06 Dose: 15 mg Metoprolol Succinate (Toprol Xl) 50 mg PO DAILY [facility] Last Admin: 03/10/17 08:58 Dose: 50 mg Rivastigmine (Exelon 9.5 Mg/24 Hr Patch) 1 patch TD DAILY [facility] Last Admin: 03/10/17 08:53 Dose: 1 patch - Labs Labs: 03/10/17 05:30 03/10/17 05:30 PT 12.2 Seconds (9.8-13.1) 03/06/17 20:29 INR 1.1 (0.9-1.2) 03/06/17 20:29 APTT 25.6 Seconds (25.6-37.1) 03/06/17 20:29
--- NOTE | 2017-03-10 12:16 | CP.PCM.PN ---
Subjective - Date & Time of Evaluation Date of Evaluation: 03/10/17 Time of Evaluation: 12:16 - Subjective Subjective: patient seen and examined at bedside along with family present. Patient admitted for bacteremia, aspiration pneumonia, ALS. Had extensive discussion withfamily, and daughter regarding patient goals of care. Patient currently in no acute distress, hemodynamically stable. Objective - Vital Signs/Intake and Output Vital Signs (last 24 hours): Temp Pulse Resp BP Pulse Ox 98.5 F 76 20 149/74 95 03/10/17 08:15 03/10/17 08:15 03/10/17 08:15 03/10/17 08:58 03/10/17 08:15 Physical exam: Constitutional- dementia, dysarthria, alert Head- NCAT, PERRL Eye- PERRL, normal accommodation ENT- normal exam, MMM. Neck- normal inspection, supple, no JVD Respiratory- CTAB, no wheezes rales rhonchi Cardiovascular- RRR, +S1, +S2 no MRG GI/Abdominal- normal bowel sounds, soft, no mass, no hsm Skin- warm, dry Extremities Exam- normal capillary refill, normal inspection Neurological Exam- alert awake Psych- difficult to assess given patient's dementia - Medications Medications: Current Medications Albuterol/Ipratropium (Duoneb 3 Mg/0.5 Mg (3 Ml) Ud) 3 ml INH RQ6 [facility] Last Admin: 03/10/17 08:43 Dose: 3 ml Aspirin (Ecotrin) 81 mg PO DAILY [facility] Last Admin: 03/10/17 08:58 Dose: 81 mg Home Med (Glyburide [Glynase Pres-Tab]) 3 mg PO DAILY [facility] Last Admin: 03/07/17 09:00 Dose: Not Given Piperacillin Sod/Tazobactam (Sod 3.375 gm/ Sodium Chloride) 100 mls @ 100 mls/ hr IVPB Q6 [facility] PRN Reason: Protocol Last Admin: 03/10/17 09:07 Dose: 100 mls/hr Azithromycin 500 mg/ Sodium (Chloride) 250 mls @ 250 mls/hr IVPB DAILY [facility] PRN Reason: Protocol Last Admin: 03/10/17 08:51 Dose: 250 mls/hr Sodium Chloride (Sodium Chloride 0.9%) 1,000 mls @ 50 mls/hr IV .Q20H [facility] Stop: 03/10/17 21:08 Last Admin: 03/09/17 21:13 Dose: 50 mls/hr Insulin Detemir (Levemir) 4 units SC HS [facility] Last Admin: 03/09/17 22:01 Dose: 4 u Insulin Human Lispro (Humalog) 0 units SC 0000,0600,1200,1800 [facility] PRN Reason: Protocol Last Admin: 03/10/17 06:50 Dose: Not Given Ketorolac Tromethamine (Toradol) 15 mg IVP Q6 PRN PRN Reason: Pain, moderate (4-7) Last Admin: 03/10/17 02:06 Dose: 15 mg Metoprolol Succinate (Toprol Xl) 50 mg PO DAILY [facility] Last Admin: 03/10/17 08:58 Dose: 50 mg Rivastigmine (Exelon 9.5 Mg/24 Hr Patch) 1 patch TD DAILY [facility] Last Admin: 03/10/17 08:53 Dose: 1 patch - Labs Labs: 03/10/17 05:30 03/10/17 05:30 PT 12.2 Seconds (9.8-13.1) 03/06/17 20:29 INR 1.1 (0.9-1.2) 03/06/17 20:29 APTT 25.6 Seconds (25.6-37.1) 03/06/17 20:29 Assessment and Plan - Assessment and Plan (Free Text) Plan: 72 years old male with hx of ALS, CAD, Dementia, COPD, and DM II and is bed bound. The patient was brought in bec of dyspnea and cough . Pt was also noted to have difficulty in swallowing. On the day of admission he appeared lethargic with diaphoretic, dyspneic and slightly hypotensive. patient was initiated on Zosyn, azithromycin. Blood cultures were positive for acinetobacter species sensitive to Zosyn. Had an extensive discussion with the and daughter regarding hospice as well as end-of-life goals. Drs. Colunga and Ligia also had very extensive and detailed conversations with the and daughter regarding hospice and palliative care. Patient has requested a couple days to consider her options and possibly opt for hospice, and to discontinue all antibiotic and switch over to comfort care measures. We will follow-up. 1. Aspiration pneumonia - received 1 dose each of IV Ceftriaxone, Vanco, Clinda and Azithro in ED - now on Unasyn- will change to IV Zosyn for added anaerobic coverage and add Azithro for atypicals - Consult Dr knowles Pulmonary - Pt passed Modified Barium Swallow - Duoneb 2. Bacteremia, Gram negative rods change abx to IV Zosyn ff up ID and sensitivity, pending sensitivities today 3. DM II with hyperglycemia - Aspart Insulin Sliding scale according to Accucheck - HbA1c - start Levemir 4. Dementia - cont Rivastigmine 5. ALS - Supportive treatment - PT/OT - Palliative consult - Hospice consult 6. CAD - consult Dr Colunga Cardiology - cont ASA #. DVT prophylaxis with SCD and Lovenox #. Code Status: Full, Surrogate decision maker - spouse Tiffanie
--- NOTE | 2017-03-10 13:08 | CP.PCM.PN ---
Subjective - Date & Time of Evaluation Date of Evaluation: 03/10/17 Time of Evaluation: 10:30 - Subjective Subjective: Unable to verbalise his symptoms Has copious amounts of secretions in his throat, being suctioned periodically by the nurses On IV ABx Spoke with pt' s and brother at length Pt can not be cared for at home by family Pt's agrees that he needs comfort care (no hope of reversing present progress of disease) She agrees that pt needs inpt hospice She will look at facilities recommended by soc svcs and select on that she approves IV ABx can be D/[place] at that point and pt can be sent to inpt hospice facility. Spoke with Dr. Taveras about this Objective - Vital Signs/Intake and Output Vital Signs (last 24 hours): Temp Pulse Resp BP Pulse Ox 98.5 F 76 20 149/74 95 03/10/17 08:15 03/10/17 08:15 03/10/17 08:15 03/10/17 08:58 03/10/17 08:15 - Medications Medications: Current Medications Albuterol/Ipratropium (Duoneb 3 Mg/0.5 Mg (3 Ml) Ud) 3 ml INH RQ6 [facility] Last Admin: 03/10/17 08:43 Dose: 3 ml Aspirin (Ecotrin) 81 mg PO DAILY [facility] Last Admin: 03/10/17 08:58 Dose: 81 mg Home Med (Glyburide [Glynase Pres-Tab]) 3 mg PO DAILY [facility] Last Admin: 03/07/17 09:00 Dose: Not Given Piperacillin Sod/Tazobactam (Sod 3.375 gm/ Sodium Chloride) 100 mls @ 100 mls/ hr IVPB Q6 [facility] PRN Reason: Protocol Last Admin: 03/10/17 09:07 Dose: 100 mls/hr Azithromycin 500 mg/ Sodium (Chloride) 250 mls @ 250 mls/hr IVPB DAILY [facility] PRN Reason: Protocol Last Admin: 03/10/17 08:51 Dose: 250 mls/hr Sodium Chloride (Sodium Chloride 0.9%) 1,000 mls @ 50 mls/hr IV .Q20H [facility] Stop: 03/10/17 21:08 Last Admin: 03/09/17 21:13 Dose: 50 mls/hr Insulin Detemir (Levemir) 4 units SC HS [facility] Last Admin: 03/09/17 22:01 Dose: 4 u Insulin Human Lispro (Humalog) 0 units SC 0000,0600,1200,1800 [facility] PRN Reason: Protocol Last Admin: 03/10/17 12:55 Dose: Not Given Ketorolac Tromethamine (Toradol) 15 mg IVP Q6 PRN PRN Reason: Pain, moderate (4-7) Last Admin: 03/10/17 02:06 Dose: 15 mg Metoprolol Succinate (Toprol Xl) 50 mg PO DAILY [facility] Last Admin: 03/10/17 08:58 Dose: 50 mg Rivastigmine (Exelon 9.5 Mg/24 Hr Patch) 1 patch TD DAILY [facility] Last Admin: 03/10/17 08:53 Dose: 1 patch - Labs Labs: 03/10/17 05:30 03/10/17 05:30 PT 12.2 Seconds (9.8-13.1) 03/06/17 20:29 INR 1.1 (0.9-1.2) 03/06/17 20:29 APTT 25.6 Seconds (25.6-37.1) 03/06/17 20:29
--- NOTE | 2017-03-10 16:22 | RAD ---
HISTORY: pneumonia COMPARISON: 03/06/2017 FINDINGS: LUNGS: The lungs are hyperinflated and there is peribronchial thickening with chronic changes in both lungs. There is improvement in right basilar airspace disease. PLEURA: No significant pleural effusion identified, no pneumothorax apparent. CARDIOVASCULAR: Normal. OSSEOUS STRUCTURES: No significant abnormalities. VISUALIZED UPPER ABDOMEN: Normal. OTHER FINDINGS: None. IMPRESSION: Right basilar atelectasis. Superimposed pneumonia cannot be excluded although there is interval improvement since the prior examination. . COPD.
[2017-03-10] MEDS: Potassium Ch 20mEq in D5-1/2NS 1,000 ML IV SCH (21:13)
[2017-03-10] MEDS: Insulin Detemir 100 Units/ml Inj SC SCH (23:00)
[2017-03-11] MEDS: Insulin Lispro (humaLOG) 100 Units/ml Inj SC SCH ×4 (00:31→17:33)
[2017-03-11] MEDS: Albuterol-Ipratrop 3 mg / 0.5 (3 ml) UD INH SCH ×4 (01:10→19:08)
[2017-03-11] MEDS: Piperacillin/Tazobact 3.375 GM in Sodium Chloride 0.9% 100 ML IVPB SCH (04:40)
[2017-03-11] MEDS: Metoprolol Succinate 50 mg XL Tab PO SCH (09:00)
[2017-03-11] MEDS: Azithromycin 500 MG in Sodium Chloride 0.9% 250 ML IVPB SCH (09:30)
[2017-03-11] MEDS: Piperacill/Tazo 3.375gm in Dex 3.375 GM/50 ML BAG IVPB SCH ×3 (10:02→21:22)
--- NOTE | 2017-03-11 10:40 | CP.PCM.PN ---
Subjective - Date & Time of Evaluation Date of Evaluation: 03/11/17 Time of Evaluation: 09:30 - Subjective Subjective: Sleeping, easily arousable Has cough but unable to expectorate Afebrile Coarse crepitations at both bases Had a discussion with daughter re disch planning She indicates they are leaning towards taking pt home and having home hospice Pt needs comfort care Objective - Vital Signs/Intake and Output Vital Signs (last 24 hours): Temp Pulse Resp BP Pulse Ox 98.3 F 82 20 141/94 H 100 03/11/17 08:31 03/11/17 08:31 03/11/17 08:31 03/11/17 08:31 03/11/17 08:31 - Medications Medications: Current Medications Albuterol/Ipratropium (Duoneb 3 Mg/0.5 Mg (3 Ml) Ud) 3 ml INH RQ6 [facility] Last Admin: 03/11/17 07:36 Dose: 3 ml Aspirin (Ecotrin) 81 mg PO DAILY [facility] Last Admin: 03/11/17 09:24 Dose: 81 mg Home Med (Glyburide [Glynase Pres-Tab]) 3 mg PO DAILY [facility] Last Admin: 03/07/17 09:00 Dose: Not Given Azithromycin 500 mg/ Sodium (Chloride) 250 mls @ 250 mls/hr IVPB DAILY [facility] PRN Reason: Protocol Last Admin: 03/11/17 09:30 Dose: 250 mls/hr Potassium Chloride/Dextrose/Sod Cl (Potassium Chl 20 Meq In D5-1/2ns) 1,000 mls @ 100 mls/hr IV .Q10H [facility] Stop: 03/11/17 18:21 Last Admin: 03/10/17 21:13 Dose: 100 mls/hr Piperacillin Sod/Tazobactam Sod (Zosyn 3.375 Gm Iv Premix) 3.375 gm in 50 mls @ 50 mls/hr IVPB Q6 [facility] PRN Reason: Protocol Insulin Detemir (Levemir) 4 units SC HS [facility] Last Admin: 03/10/17 23:00 Dose: 4 u Insulin Human Lispro (Humalog) 0 units SC 0000,0600,1200,1800 [facility] PRN Reason: Protocol Last Admin: 03/11/17 09:23 Dose: Not Given Ketorolac Tromethamine (Toradol) 15 mg IVP Q6 PRN PRN Reason: Pain, moderate (4-7) Last Admin: 03/10/17 02:06 Dose: 15 mg Metoprolol Succinate (Toprol Xl) 50 mg PO DAILY [facility] Last Admin: 03/10/17 08:58 Dose: 50 mg Rivastigmine (Exelon 9.5 Mg/24 Hr Patch) 1 patch TD DAILY [facility] Last Admin: 03/11/17 09:21 Dose: 1 patch - Labs Labs: 03/10/17 05:30 03/10/17 05:30 PT 12.2 Seconds (9.8-13.1) 03/06/17 20:29 INR 1.1 (0.9-1.2) 03/06/17 20:29 APTT 25.6 Seconds (25.6-37.1) 03/06/17 20:29
--- NOTE | 2017-03-11 11:23 | CP.PCM.PN ---
Subjective - Date & Time of Evaluation Date of Evaluation: 03/11/17 Time of Evaluation: 10:45 - Subjective Subjective: Family at bedside , discussed test results Pt is very lethargic has been NPO due to lethargy and risk of aspiration no BM Family states that pt does not want PEG Objective - Vital Signs/Intake and Output Vital Signs (last 24 hours): Temp Pulse Resp BP Pulse Ox 98.3 F 82 20 141/94 H 100 03/11/17 08:31 03/11/17 08:31 03/11/17 08:31 03/11/17 08:31 03/11/17 08:31 - Medications Medications: Current Medications Albuterol/Ipratropium (Duoneb 3 Mg/0.5 Mg (3 Ml) Ud) 3 ml INH RQ6 [facility] Last Admin: 03/11/17 07:36 Dose: 3 ml Aspirin (Ecotrin) 81 mg PO DAILY [facility] Last Admin: 03/11/17 09:24 Dose: 81 mg Home Med (Glyburide [Glynase Pres-Tab]) 3 mg PO DAILY [facility] Last Admin: 03/07/17 09:00 Dose: Not Given Azithromycin 500 mg/ Sodium (Chloride) 250 mls @ 250 mls/hr IVPB DAILY [facility] PRN Reason: Protocol Last Admin: 03/11/17 09:30 Dose: 250 mls/hr Potassium Chloride/Dextrose/Sod Cl (Potassium Chl 20 Meq In D5-1/2ns) 1,000 mls @ 100 mls/hr IV .Q10H [facility] Stop: 03/11/17 18:21 Last Admin: 03/10/17 21:13 Dose: 100 mls/hr Piperacillin Sod/Tazobactam Sod (Zosyn 3.375 Gm Iv Premix) 3.375 gm in 50 mls @ 50 mls/hr IVPB Q6 [facility] PRN Reason: Protocol Insulin Detemir (Levemir) 4 units SC HS [facility] Last Admin: 03/10/17 23:00 Dose: 4 u Insulin Human Lispro (Humalog) 0 units SC 0000,0600,1200,1800 [facility] PRN Reason: Protocol Last Admin: 03/11/17 09:23 Dose: Not Given Ketorolac Tromethamine (Toradol) 15 mg IVP Q6 PRN PRN Reason: Pain, moderate (4-7) Last Admin: 03/10/17 02:06 Dose: 15 mg Metoprolol Succinate (Toprol Xl) 50 mg PO DAILY [facility] Last Admin: 03/10/17 08:58 Dose: 50 mg Rivastigmine (Exelon 9.5 Mg/24 Hr Patch) 1 patch TD DAILY [facility] Last Admin: 03/11/17 09:21 Dose: 1 patch - Labs Labs: 03/10/17 05:30 03/10/17 05:30 PT 12.2 Seconds (9.8-13.1) 03/06/17 20:29 INR 1.1 (0.9-1.2) 03/06/17 20:29 APTT 25.6 Seconds (25.6-37.1) 03/06/17 20:29 - Constitutional Appears: No Acute Distress, Chronically Ill, very lethargic - Head Exam Head Exam: NORMAL INSPECTION, NORMOCEPHALIC - Eye Exam Eye Exam: EOMI, Normal appearance - ENT Exam ENT Exam: Mucous Membranes Dry, Normal External Ear Exam - Neck Exam Neck Exam: Full ROM. absent: Meningismus - Respiratory Exam Respiratory Exam: Rales, Rhonchi. absent: Wheezes, Respiratory Distress - Cardiovascular Exam Cardiovascular Exam: REGULAR RHYTHM, +S1, +S2 - GI/Abdominal Exam GI & Abdominal Exam: Soft, Normal Bowel Sounds. absent: Tenderness - Extremities Exam Extremities Exam: Normal Capillary Refill. absent: Calf Tenderness - Back Exam Back Exam: absent: CVA tenderness (L), CVA tenderness (R) - Neurological Exam Very lethargic , noted to move UE, opens eyes occasionally and groans - Psychiatric Exam Psychiatric exam: Flat Affect - Skin Skin Exam: Dry, Normal Color, Warm Assessment and Plan - Assessment and Plan (Free Text) Assessment: 72 years old male with hx of ALS, CAD, Dementia, COPD, and DM II and is bed bound, was brought in bec of dyspnea and cough . Pt was also noted to have difficulty in swallowing. . On the day of admission he appeared lethargic with diaphoretic, dyspneic and slightly hypotensive. At present , pt is afebrile, leukocytosis resolved however pt remains lethargic. He is NPO due to his lethargyc . As per family, pt's previous wish - NO PEG. Hospice Care discussed with family. 1. Aspiration pneumonia - received 1 dose each of IV Ceftriaxone, Vanco , Clinda and Azithro in ED - Abx changed to IV Zosyn and Azithro - Consulted Dr knowles Pulmonary - [facility] [place] 2. Sepsis ( POA) with Acinetobacter sp Bacteremia cont IV Zosyn leukocytosis resolved 3. DM II with hyperglycemia - Aspart Insulin Sliding scale according to Accucheck - pt is NPO 4. Dementia d/c Exelon patch as pt is very lethargic 5. ALS - Supportive treatment - PT/OT - Palliative consult - Hospice consulted - as per pt's wish NO PEG placement 6. CAD - consult Dr Colunga Cardiology - cont ASA #. DVT prophylaxis with SCD and Lovenox #. Code Status: Full, Surrogate decision maker - spouse Tiffanie
[2017-03-11] MEDS ORDERED: Enoxaparin 40 mg Syringe SC SCH (11:45)
[2017-03-11] MEDS ORDERED: Chlorhexidine Gluconate 1 APPL/PKT TP ONE (12:49)
[2017-03-11] MEDS: Potassium Ch 20mEq in D5-1/2NS 1,000 ML IV SCH (18:05)
[2017-03-12] MEDS: Albuterol-Ipratrop 3 mg / 0.5 (3 ml) UD INH SCH ×4 (01:14→19:14)
[2017-03-12] MEDS: Piperacill/Tazo 3.375gm in Dex 3.375 GM/50 ML BAG IVPB SCH ×4 (04:24→21:17)
[2017-03-12] MEDS: Insulin Lispro (humaLOG) 100 Units/ml Inj SC SCH ×4 (07:05→18:39)
--- NOTE | 2017-03-12 07:32 | CP.PCM.PCO ---
Physician Communication Note - Physician Communication Note Physician Communication Note: Patient having Coffee ground vomitus.
[2017-03-12 07:45] LABS: BASO # 0.1 K/uL (0.0-0.2); BASO % 0.3 % (0.0-2.0); EOS % 0.3 % (0.0-4.0); HEMATOCRIT 45.1 % (35.0-51.0); LYMPH # 0.6 K/uL (1.0-4.3); LYMPH % 3.6 % (20.0-40.0); MEAN CELL VOLUME 90.9 fl (80.0-94.0); MEAN CORPUSCULAR HEMOGLOBIN 30.1 pg (27.0-31.0); MEAN CORPUSCULAR HGB CONC 33.2 g/dL (33.0-37.0); MEAN PLATELET VOLUME 8.8 fl (7.2-11.7); MONO # 1.1 K/uL (0.0-0.8); MONO % 6.3 % (0.0-10.0); NEUT # 15.6 K/uL (1.8-7.0); NEUT % 89.5 % (50.0-75.0); NRBC % 0.1 % (0.0-0.0); PLATELET COUNT 315 K/uL (130-400); RED CELL DISTRIBUTION WIDTH 13.7 % (11.5-14.5); WHITE BLOOD COUNT 17.4 K/uL (4.8-10.8)
--- NOTE | 2017-03-12 08:51 | CP.PCM.PN ---
Subjective - Date & Time of Evaluation Date of Evaluation: 03/12/17 Time of Evaluation: 10:00 - Subjective Subjective: Lying in bed, unable to vocalize or follow commands. Markedly congested cough, unable to clear airways secretions. Low tidal volume with limited chest expansion. No dullness on percussion of the anterior chest wall. Breath sounds are very diminished bilaterally w/o audible wheezes. Sonorous rhonchi are present in dependant zones when the patient coughs. 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 High risk for aspiration of oropharyngeal contents. Impending respiratory failure. Decision regarding extent of care or aggressiveness of therapies is imperative. Objective - Vital Signs/Intake and Output Vital Signs (last 24 hours): Temp Pulse Resp BP Pulse Ox 97.8 F 94 H 20 144/68 95 03/12/17 07:24 03/12/17 07:24 03/12/17 07:24 03/12/17 07:24 03/12/17 07:24 - Medications Medications: Current Medications Albuterol/Ipratropium (Duoneb 3 Mg/0.5 Mg (3 Ml) Ud) 3 ml INH RQ6 [facility] Last Admin: 03/12/17 07:08 Dose: 3 ml Azithromycin 500 mg/ Sodium (Chloride) 250 mls @ 250 mls/hr IVPB DAILY [facility] PRN Reason: Protocol Last Admin: 03/11/17 09:30 Dose: 250 mls/hr Piperacillin Sod/Tazobactam Sod (Zosyn 3.375 Gm Iv Premix) 3.375 gm in 50 mls @ 50 mls/hr IVPB Q6 [facility] PRN Reason: Protocol Last Admin: 03/12/17 04:24 Dose: 50 mls/hr Insulin Human Lispro (Humalog) 0 units SC 0000,0600,1200,1800 [facility] PRN Reason: Protocol Last Admin: 03/12/17 00:00 Dose: Not Given Metoclopramide HCl (Reglan) 10 mg IVP Q6 PRN PRN Reason: Nausea/Vomiting Stop: 03/14/17 06:45 Last Admin: 03/12/17 07:05 Dose: 10 mg Metoprolol Succinate (Toprol Xl) 50 mg PO DAILY [facility] Last Admin: 03/11/17 09:00 Dose: Not Given Pantoprazole Sodium (Protonix Inj) 40 mg IVP Q12 [facility] - Labs Labs: 03/12/17 07:25 03/10/17 05:30 PT 12.2 Seconds (9.8-13.1) 03/06/17 20:29 INR 1.1 (0.9-1.2) 03/06/17 20:29 APTT 25.6 Seconds (25.6-37.1) 03/06/17 20:29
[2017-03-12] MEDS: Metoprolol Succinate 50 mg XL Tab PO SCH (08:56)
[2017-03-12] MEDS: Azithromycin 500 MG in Sodium Chloride 0.9% 250 ML IVPB SCH (08:56)
--- NOTE | 2017-03-12 10:50 | CP.PCM.PN ---
Subjective - Date & Time of Evaluation Date of Evaluation: 03/12/17 Time of Evaluation: 10:10 - Subjective Subjective: Sleeping, easily arousable Unable to verbalise, does not seem to comprehend simple commands Vomitted last night Afebrile Throat secretions++ ( Being aspirated periodically by nurses) Family has not settled on course of management going forward. Objective - Vital Signs/Intake and Output Vital Signs (last 24 hours): Temp Pulse Resp BP Pulse Ox 97.8 F 94 H 20 144/58 L 95 03/12/17 07:24 03/12/17 07:24 03/12/17 07:24 03/12/17 08:56 03/12/17 07:24 - Medications Medications: Current Medications Albuterol/Ipratropium (Duoneb 3 Mg/0.5 Mg (3 Ml) Ud) 3 ml INH RQ6 [facility] Last Admin: 03/12/17 07:08 Dose: 3 ml Azithromycin 500 mg/ Sodium (Chloride) 250 mls @ 250 mls/hr IVPB DAILY [facility] PRN Reason: Protocol Last Admin: 03/12/17 08:56 Dose: 250 mls/hr Piperacillin Sod/Tazobactam Sod (Zosyn 3.375 Gm Iv Premix) 3.375 gm in 50 mls @ 50 mls/hr IVPB Q6 [facility] PRN Reason: Protocol Last Admin: 03/12/17 10:22 Dose: 50 mls/hr Insulin Human Lispro (Humalog) 0 units SC 0000,0600,1200,1800 [facility] PRN Reason: Protocol Last Admin: 03/12/17 07:05 Dose: 1 unit Metoclopramide HCl (Reglan) 10 mg IVP Q6 PRN PRN Reason: Nausea/Vomiting Stop: 03/14/17 06:45 Last Admin: 03/12/17 07:05 Dose: 10 mg Metoprolol Succinate (Toprol Xl) 50 mg PO DAILY [facility] Last Admin: 03/12/17 08:56 Dose: 50 mg Pantoprazole Sodium (Protonix Inj) 40 mg IVP Q12 [facility] - Labs Labs: 03/12/17 07:25 03/10/17 05:30 PT 12.2 Seconds (9.8-13.1) 03/06/17 20:29 INR 1.1 (0.9-1.2) 03/06/17 20:29 APTT 25.6 Seconds (25.6-37.1) 03/06/17 20:29
--- NOTE | 2017-03-12 11:11 | CP.PCM.PN ---
Subjective - Date & Time of Evaluation Date of Evaluation: 03/12/17 Time of Evaluation: 10:30 - Subjective Subjective: Pt had vomited some coffee ground material overnight. No further episode . Night Hospitalist started IV PPI , GI consulted, H/H remains stable at bedside , discussed event overnight , test results . Had long discussion regarding prognosis. states it has always been her 's wish not to have any PEG tubes. She also stated that she does not want any CPR nor intubation. Pt is afebrile at present remains very lethargic has not had any PO intake Objective - Vital Signs/Intake and Output Vital Signs (last 24 hours): Temp Pulse Resp BP Pulse Ox 97.8 F 94 H 20 144/58 L 95 03/12/17 07:24 03/12/17 07:24 03/12/17 07:24 03/12/17 08:56 03/12/17 07:24 - Medications Medications: Current Medications Albuterol/Ipratropium (Duoneb 3 Mg/0.5 Mg (3 Ml) Ud) 3 ml INH RQ6 [facility] Last Admin: 03/12/17 07:08 Dose: 3 ml Azithromycin 500 mg/ Sodium (Chloride) 250 mls @ 250 mls/hr IVPB DAILY [facility] PRN Reason: Protocol Last Admin: 03/12/17 08:56 Dose: 250 mls/hr Piperacillin Sod/Tazobactam Sod (Zosyn 3.375 Gm Iv Premix) 3.375 gm in 50 mls @ 50 mls/hr IVPB Q6 [facility] PRN Reason: Protocol Last Admin: 03/12/17 10:22 Dose: 50 mls/hr Insulin Human Lispro (Humalog) 0 units SC 0000,0600,1200,1800 [facility] PRN Reason: Protocol Last Admin: 03/12/17 07:05 Dose: 1 unit Metoclopramide HCl (Reglan) 10 mg IVP Q6 PRN PRN Reason: Nausea/Vomiting Stop: 03/14/17 06:45 Last Admin: 03/12/17 07:05 Dose: 10 mg Metoprolol Succinate (Toprol Xl) 50 mg PO DAILY [facility] Last Admin: 03/12/17 08:56 Dose: 50 mg Pantoprazole Sodium (Protonix Inj) 40 mg IVP Q12 [facility] - Labs Labs: 03/12/17 07:25 03/10/17 05:30 PT 12.2 Seconds (9.8-13.1) 03/06/17 20:29 INR 1.1 (0.9-1.2) 03/06/17 20:29 APTT 25.6 Seconds (25.6-37.1) 03/06/17 20:29 - Constitutional Appears: No Acute Distress, Chronically Ill, very lethargic - Head Exam Head Exam: NORMAL INSPECTION, NORMOCEPHALIC - Eye Exam Eye Exam: EOMI, Normal appearance - ENT Exam ENT Exam: Mucous Membranes Dry, Normal External Ear Exam - Neck Exam Neck Exam: Full ROM. absent: Meningismus - Respiratory Exam Respiratory Exam: Rales, Rhonchi. absent: Wheezes, Respiratory Distress - Cardiovascular Exam Cardiovascular Exam: REGULAR RHYTHM, +S1, +S2 - GI/Abdominal Exam GI & Abdominal Exam: Soft, Normal Bowel Sounds. absent: Tenderness - Extremities Exam Extremities Exam: Normal Capillary Refill. absent: Calf Tenderness - Back Exam Back Exam: absent: CVA tenderness (L), CVA tenderness (R) - Neurological Exam Very lethargic , noted to move UE opens eyes to tactile stimuli but goes back to sleep - Skin Skin Exam: Dry, Normal Color, Warm Assessment and Plan - Assessment and Plan (Free Text) Assessment: 72 years old male with hx of ALS, CAD, Dementia, COPD, and DM II and is bed bound, was brought in bec of dyspnea and cough . Pt was also noted to have difficulty in swallowing. . On the day of admission he appeared lethargic with diaphoretic, dyspneic and slightly hypotensive. At present , pt is afebrile, leukocytosis resolved however pt remains lethargic. He is NPO due to his lethargy . As per family, pt's previous wish - NO PEG. Hospice Care discussed with family- will speak with SW in am. now wants pt to be DNR/DNI. 1. Aspiration pneumonia - improving clinically, pt now afebrile, leukocytosis resolved -cont IV Zosyn and Azithro - Consulted Dr knowles Pulmonary - [place] 2. Sepsis ( POA) with Acinetobacter sp. Bacteremia cont IV Zosyn leukocytosis resolved 3. Coffee Ground Emesis - cont IV Protonix -GI consult -monitor H/H 4. DM II with hyperglycemia - Accucheck - pt is NPO 5. Dementia d/c Exelon patch as pt is very lethargic 6. ALS - Supportive treatment - PT/OT - Hospice consulted - as per pt's wish NO PEG placement 7. CAD - consulted Dr Colunga Cardiology - d/c ASA due to poss GIB #. DVT prophylaxis with SCD off Lovenox due to coffee ground emesis #. Code Status: DNR/DNI as discussed with Surrogate decision maker - spouse Tiffanie
[2017-03-12 11:55] LABS: NEUTROPHIL 87 % (42-75); TOTAL CELLS COUNTED 100
[2017-03-12 11:56] LABS: GIANT PLATELETS PRESENT; LARGE PLATELETS PRESENT
[2017-03-12 14:31] LABS: HEMATOCRIT 40.2 % (35.0-51.0); MEAN CORPUSCULAR HEMOGLOBIN 30.6 pg (27.0-31.0); RED CELL DISTRIBUTION WIDTH 13.6 % (11.5-14.5); WHITE BLOOD COUNT 12.6 K/uL (4.8-10.8)
[2017-03-12 14:56] LABS: BLOOD UREA NITROGEN 10 mg/dl (9-20); CALCIUM 9.2 mg/dL (8.4-10.2); CARBON DIOXIDE 25 mmol/L (22-30); CHLORIDE 105 mmol/L (98-107); GFR AFRICAN-AMERICAN > 60; GLUCOSE,RANDOM 161 mg/dL (75-110); POTASSIUM 3.8 MMOL/L (3.6-5.0); SODIUM 139 mmol/l (132-148)
--- NOTE | 2017-03-12 15:18 | CP.PCM.CON ---
History of Present Illness - History of Present Illness History of Present Illness: 72 yo male with h/o ALD, dementia, COPD, and DM2 referred to me after an episode of coffee grounds emesis this morning. Patient has had swallowing evaluations which he has passed though often food will just sit in the back of his throat. His states that the family does not want a gastrostomy because this is a preference he had stated. He is currently DNR. Review of Systems - Review of Systems Systems not reviewed;Unavailable: Altered Mental Status Past Patient History - Past Medical History & Family History Past Medical History?: Yes - Past Social History Smoking Status: Former Smoker Alcohol: None Drugs: Denies - CARDIAC Hx Cardiac Disorders: Yes (CAD) Hx Hypertension: Yes - PULMONARY Hx Chronic Obstructive Pulmonary Disease (COPD): Yes Hx Emphysema: Yes (Emphysematous changes ) Hx Pneumonia: Yes - NEUROLOGICAL Hx Neurological Disorder: Yes (ALS) Hx Dementia: Yes Hx Transient Ischemic Attacks (TIA): Yes - HEENT Hx HEENT Problems: No - RENAL Hx Chronic Kidney Disease: No - ENDOCRINE/METABOLIC Hx Diabetes Mellitus Type 2: Yes - HEMATOLOGICAL/ONCOLOGICAL Hx Blood Disorders: No - INTEGUMENTARY Hx Dermatological Problems: No - MUSCULOSKELETAL/RHEUMATOLOGICAL Hx Degenerative Joint Disease: Yes (bl knee) - GASTROINTESTINAL Hx Gastroesophageal Reflux: Yes (hiatus hernia) - GENITOURINARY/GYNECOLOGICAL Hx Genitourinary Disorders: No - PSYCHIATRIC Hx Psychophysiologic Disorder: No Hx Substance Use: No - SURGICAL HISTORY Hx Surgeries: Yes Hx Angioplasty: Yes Other/Comment: PTCA w/o stent x2; fracture R elbow; Arthroscopic surgery bl knee - ANESTHESIA Hx Anesthesia: Yes Hx Anesthesia Reactions: No Meds Allergies/Adverse Reactions: Allergies Allergy/AdvReac Type Severity Reaction Status Date / Time No Known Allergies Allergy Verified 03/06/17 20:40 - Medications Medications: Current Medications Albuterol/Ipratropium (Duoneb 3 Mg/0.5 Mg (3 Ml) Ud) 3 ml INH RQ6 [facility] Last Admin: 03/12/17 13:42 Dose: 3 ml Azithromycin 500 mg/ Sodium (Chloride) 250 mls @ 250 mls/hr IVPB DAILY [facility] PRN Reason: Protocol Last Admin: 03/12/17 08:56 Dose: 250 mls/hr Piperacillin Sod/Tazobactam Sod (Zosyn 3.375 Gm Iv Premix) 3.375 gm in 50 mls @ 50 mls/hr IVPB Q6 [facility] PRN Reason: Protocol Last Admin: 03/12/17 10:22 Dose: 50 mls/hr Insulin Human Lispro (Humalog) 0 units SC 0000,0600,1200,1800 [facility] PRN Reason: Protocol Last Admin: 03/12/17 13:42 Dose: Not Given Metoclopramide HCl (Reglan) 10 mg IVP Q6 PRN PRN Reason: Nausea/Vomiting Stop: 03/14/17 06:45 Last Admin: 03/12/17 07:05 Dose: 10 mg Metoprolol Succinate (Toprol Xl) 50 mg PO DAILY [facility] Last Admin: 03/12/17 08:56 Dose: 50 mg Pantoprazole Sodium (Protonix Inj) 40 mg IVP Q12 [facility] Physical Exam - Constitutional Appears: No Acute Distress - Head Exam Head Exam: ATRAUMATIC - Eye Exam Eye Exam: Normal appearance - ENT Exam ENT Exam: Mucous Membranes Moist - Neck Exam Neck exam: Positive for: Normal Inspection - Respiratory Exam Respiratory Exam: Clear to Auscultation Bilateral - Cardiovascular Exam Cardiovascular Exam: REGULAR RHYTHM - GI/Abdominal Exam GI & Abdominal Exam: Normal Bowel Sounds, Soft. absent: Tenderness Results - Vital Signs Recent Vital Signs: Last Vital Signs Temp 97.8 F 03/12/17 07:24 Pulse 94 H 03/12/17 07:24 Resp 20 03/12/17 07:24 BP 144/58 L 03/12/17 08:56 Pulse Ox 95 03/12/17 07:24 - Labs Result Diagrams: 03/12/17 14:27 03/12/17 14:27 Labs: Laboratory Results - last 24 hr 03/11/17 03/11/17 03/12/17 16:03 20:59 05:03 WBC RBC Hgb Hct MCV MCH MCHC RDW Plt Count MPV Neut % (Auto) Lymph % (Auto) [place] % (Auto) Eos % (Auto) Baso % (Auto) Neut # Lymph # [place] # Eos # Baso # Neutrophils % (Manual) Band Neutrophils % Lymphocytes % (Manual) Monocytes % (Manual) Platelet Estimate Large Platelets Giant Platelets Anisocytosis (manual) Sodium Potassium Chloride Carbon Dioxide Anion Gap BUN Creatinine Est GFR ( Amer) Est GFR (Non-Af Amer) POC Glucose (mg/dL) 128 H 150 H 194 H Random Glucose Calcium BBK History Checked 03/12/17 03/12/17 03/12/17 07:25 10:30 14:27 WBC 17.4 H D 12.6 H RBC 4.96 4.47 Hgb 15.0 13.7 Hct 45.1 40.2 MCV 90.9 90.0 MCH 30.1 30.6 MCHC 33.2 34.0 RDW 13.7 13.6 Plt Count 315 251 MPV 8.8 Neut % (Auto) 89.5 H Lymph % (Auto) 3.6 L [place] % (Auto) 6.3 Eos % (Auto) 0.3 Baso % (Auto) 0.3 Neut # 15.6 H Lymph # 0.6 L [place] # 1.1 H Eos # 0.0 Baso # 0.1 Neutrophils % (Manual) 87 H Band Neutrophils % 2 Lymphocytes % (Manual) 6 L Monocytes % (Manual) 5 Platelet Estimate Normal Large Platelets Present Giant Platelets Present Anisocytosis (manual) Slight Sodium Potassium Chloride Carbon Dioxide Anion Gap BUN Creatinine Est GFR ( Amer) Est GFR (Non-Af Amer) POC Glucose (mg/dL) 182 H Random Glucose Calcium BBK History Checked 03/12/17 03/12/17 14:27 14:27 WBC RBC Hgb Hct MCV MCH MCHC RDW Plt Count MPV Neut % (Auto) Lymph % (Auto) [place] % (Auto) Eos % (Auto) Baso % (Auto) Neut # Lymph # [place] # Eos # Baso # Neutrophils % (Manual) Band Neutrophils % Lymphocytes % (Manual) Monocytes % (Manual) Platelet Estimate Large Platelets Giant Platelets Anisocytosis (manual) Sodium 139 Potassium 3.8 Chloride 105 Carbon Dioxide 25 Anion Gap 13 BUN 10 Creatinine 0.7 L Est GFR ( Amer) > 60 Est GFR (Non-Af Amer) > 60 POC Glucose (mg/dL) Random Glucose 161 H Calcium 9.2 BBK History Checked No verified bt Assessment & Plan (1) Hematemesis/vomiting blood Assessment and Plan: Currently no active bleeding or vomiting. patient does not want aggressive treatment. Will follow with you clinically. Continue pantoprazole. Status: Acute
[2017-03-13] MEDS: Albuterol-Ipratrop 3 mg / 0.5 (3 ml) UD INH SCH ×4 (01:55→19:00)
[2017-03-13] MEDS: Piperacill/Tazo 3.375gm in Dex 3.375 GM/50 ML BAG IVPB SCH ×4 (03:47→22:27)
[2017-03-13 06:24] LABS: HEMATOCRIT 39.6 % (35.0-51.0); MEAN CELL VOLUME 90.3 fl (80.0-94.0); MEAN CORPUSCULAR HGB CONC 34.4 g/dL (33.0-37.0); RED CELL DISTRIBUTION WIDTH 13.7 % (11.5-14.5); WHITE BLOOD COUNT 15.5 K/uL (4.8-10.8)
[2017-03-13 06:29] LABS: BLOOD UREA NITROGEN 9 mg/dl (9-20); CALCIUM 9.2 mg/dL (8.4-10.2); CARBON DIOXIDE 25 mmol/L (22-30); CHLORIDE 107 mmol/L (98-107); GFR AFRICAN-AMERICAN > 60; GLUCOSE,RANDOM 143 mg/dL (75-110); POTASSIUM 3.5 MMOL/L (3.6-5.0); SODIUM 141 mmol/l (132-148)
[2017-03-13] MEDS: Insulin Lispro (humaLOG) 100 Units/ml Inj SC SCH ×5 (08:22→17:18)
[2017-03-13] MEDS: Azithromycin 500 MG in Sodium Chloride 0.9% 250 ML IVPB SCH (08:56)
[2017-03-13] MEDS: Metoprolol Succinate 50 mg XL Tab PO SCH (08:57)
--- NOTE | 2017-03-13 09:27 | CP.PCM.PN ---
Subjective - Date & Time of Evaluation Date of Evaluation: 03/13/17 Time of Evaluation: 09:45 - Subjective Subjective: Sleeping easily arousable Can not verbalise , can not follow simple commands No further vomitting episodes Has copious bronchial secretions, can not expectorate secretions sit at the back of the throat afebrile Poor inspiratory effort, coarse crepitations both bases+ Heart sounds distant but normal IV ABx continue Given the nature of his illness and recurring aspiration his prognosis is grim Family has requested DNR Objective - Vital Signs/Intake and Output Vital Signs (last 24 hours): Temp Pulse Resp BP Pulse Ox 98.3 F 93 H 18 133/65 99 03/13/17 07:31 03/13/17 08:57 03/13/17 07:31 03/13/17 08:57 03/13/17 07:31 - Medications Medications: Current Medications Albuterol/Ipratropium (Duoneb 3 Mg/0.5 Mg (3 Ml) Ud) 3 ml INH RQ6 [facility] Last Admin: 03/13/17 07:16 Dose: 3 ml Azithromycin 500 mg/ Sodium (Chloride) 250 mls @ 250 mls/hr IVPB DAILY [facility] PRN Reason: Protocol Last Admin: 03/13/17 08:56 Dose: 250 mls/hr Piperacillin Sod/Tazobactam Sod (Zosyn 3.375 Gm Iv Premix) 3.375 gm in 50 mls @ 50 mls/hr IVPB Q6 [facility] PRN Reason: Protocol Last Admin: 03/13/17 08:59 Dose: 50 mls/hr Insulin Human Lispro (Humalog) 0 units SC 0000,0600,1200,1800 [facility] PRN Reason: Protocol Last Admin: 03/13/17 08:22 Dose: Not Given Metoclopramide HCl (Reglan) 10 mg IVP Q6 PRN PRN Reason: Nausea/Vomiting Stop: 03/14/17 06:45 Last Admin: 03/12/17 07:05 Dose: 10 mg Metoprolol Succinate (Toprol Xl) 50 mg PO DAILY [facility] Last Admin: 03/13/17 08:57 Dose: 50 mg Pantoprazole Sodium (Protonix Inj) 40 mg IVP Q12 [facility] Last Admin: 03/13/17 08:56 Dose: 40 mg - Labs Labs: 03/13/17 05:25 03/13/17 05:25 PT 12.2 Seconds (9.8-13.1) 03/06/17 20:29 INR 1.1 (0.9-1.2) 03/06/17 20:29 APTT 25.6 Seconds (25.6-37.1) 03/06/17 20:29
--- NOTE | 2017-03-13 09:57 | CP.PCM.PN ---
Subjective - Date & Time of Evaluation Date of Evaluation: 03/13/17 Time of Evaluation: 09:55 - Subjective Subjective: Appears slightly more awake/alert today. Cough seems slightly stronger, but still non-productive. Speech is not intelligible, but vocalizes more strongly. Coarse rhonchi are present in dependant lung zones. No audible wheezes appreciated. Will trial cough assist device. Continue all other therapies. Objective - Vital Signs/Intake and Output Vital Signs (last 24 hours): Temp Pulse Resp BP Pulse Ox 98.3 F 93 H 18 133/65 99 03/13/17 07:31 03/13/17 08:57 03/13/17 07:31 03/13/17 08:57 03/13/17 07:31 - Medications Medications: Current Medications Albuterol/Ipratropium (Duoneb 3 Mg/0.5 Mg (3 Ml) Ud) 3 ml INH RQ6 [facility] Last Admin: 03/13/17 07:16 Dose: 3 ml Azithromycin 500 mg/ Sodium (Chloride) 250 mls @ 250 mls/hr IVPB DAILY [facility] PRN Reason: Protocol Last Admin: 03/13/17 08:56 Dose: 250 mls/hr Piperacillin Sod/Tazobactam Sod (Zosyn 3.375 Gm Iv Premix) 3.375 gm in 50 mls @ 50 mls/hr IVPB Q6 [facility] PRN Reason: Protocol Last Admin: 03/13/17 08:59 Dose: 50 mls/hr Insulin Human Lispro (Humalog) 0 units SC 0000,0600,1200,1800 [facility] PRN Reason: Protocol Last Admin: 03/13/17 08:22 Dose: Not Given Metoclopramide HCl (Reglan) 10 mg IVP Q6 PRN PRN Reason: Nausea/Vomiting Stop: 03/14/17 06:45 Last Admin: 03/12/17 07:05 Dose: 10 mg Metoprolol Succinate (Toprol Xl) 50 mg PO DAILY [facility] Last Admin: 03/13/17 08:57 Dose: 50 mg Pantoprazole Sodium (Protonix Inj) 40 mg IVP Q12 [facility] Last Admin: 03/13/17 08:56 Dose: 40 mg - Labs Labs: 03/13/17 05:25 03/13/17 05:25 PT 12.2 Seconds (9.8-13.1) 03/06/17 20:29 INR 1.1 (0.9-1.2) 03/06/17 20:29 APTT 25.6 Seconds (25.6-37.1) 03/06/17 20:29
[2017-03-13] MEDS ORDERED: Potassium Chloride 20 mEq ER Tab PO ONE (11:05)
--- NOTE | 2017-03-13 12:34 | CP.PCM.PN ---
Subjective - Date & Time of Evaluation Date of Evaluation: 03/13/17 Time of Evaluation: 11:30 - Subjective Subjective: Pt is more alert today, follows simple commands however not consistent minimal verbal output No fever Speech Therapist came at bedside , pt tolerated PO feeding however , he has very poor PO intake Plan fo LANCE placement for IV antibiotics and for physical therapy. Objective - Vital Signs/Intake and Output Vital Signs (last 24 hours): Temp Pulse Resp BP Pulse Ox 98.3 F 93 H 18 133/65 99 03/13/17 07:31 03/13/17 08:57 03/13/17 07:31 03/13/17 08:57 03/13/17 07:31 - Medications Medications: Current Medications Albuterol/Ipratropium (Duoneb 3 Mg/0.5 Mg (3 Ml) Ud) 3 ml INH RQ6 [facility] Last Admin: 03/13/17 07:16 Dose: 3 ml Azithromycin 500 mg/ Sodium (Chloride) 250 mls @ 250 mls/hr IVPB DAILY [facility] PRN Reason: Protocol Last Admin: 03/13/17 08:56 Dose: 250 mls/hr Piperacillin Sod/Tazobactam Sod (Zosyn 3.375 Gm Iv Premix) 3.375 gm in 50 mls @ 50 mls/hr IVPB Q6 [facility] PRN Reason: Protocol Last Admin: 03/13/17 08:59 Dose: 50 mls/hr Insulin Human Lispro (Humalog) 0 units SC 0000,0600,1200,1800 [facility] PRN Reason: Protocol Last Admin: 03/13/17 11:53 Dose: 1 unit Metoclopramide HCl (Reglan) 10 mg IVP Q6 PRN PRN Reason: Nausea/Vomiting Stop: 03/14/17 06:45 Last Admin: 03/12/17 07:05 Dose: 10 mg Metoprolol Succinate (Toprol Xl) 50 mg PO DAILY [facility] Last Admin: 03/13/17 08:57 Dose: 50 mg Pantoprazole Sodium (Protonix Inj) 40 mg IVP Q12 [facility] Last Admin: 03/13/17 08:56 Dose: 40 mg - Labs Labs: 03/13/17 05:25 03/13/17 05:25 PT 12.2 Seconds (9.8-13.1) 03/06/17 20:29 INR 1.1 (0.9-1.2) 03/06/17 20:29 APTT 25.6 Seconds (25.6-37.1) 03/06/17 20:29 - Constitutional Appears: No Acute Distress, Chronically Ill, more awake today - Head Exam Head Exam: NORMAL INSPECTION, NORMOCEPHALIC - Eye Exam Eye Exam: EOMI, Normal appearance - ENT Exam ENT Exam: Mucous Membranes Dry, Normal External Ear Exam - Neck Exam Neck Exam: Full ROM. absent: Meningismus - Respiratory Exam Respiratory Exam: Rales, Rhonchi. absent: Wheezes, Respiratory Distress - Cardiovascular Exam Cardiovascular Exam: REGULAR RHYTHM, +S1, +S2 - GI/Abdominal Exam GI & Abdominal Exam: Soft, Normal Bowel Sounds. absent: Tenderness - Extremities Exam Extremities Exam: Normal Capillary Refill. absent: Calf Tenderness - Back Exam Back Exam: absent: CVA tenderness (L), CVA tenderness (R) - Neurological Exam noted to move UE follows simple commands - Skin Skin Exam: Dry, Normal Color, Warm Assessment and Plan - Assessment and Plan (Free Text) Assessment: 72 years old male with hx of ALS, CAD, Dementia, COPD, and DM II and is bed bound, was brought in bec of dyspnea and cough . Pt was also noted to have difficulty in swallowing. . On the day of admission he appeared lethargic with diaphoretic, dyspneic and slightly hypotensive. At present , pt is afebrile, leukocytosis resolved. Patient had been very lethargic the past few days and has been NPO due to his lethargy . As per family, pt's previous wish - NO PEG. wants to hold off on Hospice however wants pt to be DNR/DNI ( as per pt's previous wish accdg to his ) Today pt is more alert. Speech therapist came to eval pt and pt did well with feeding ( Pureed , nectar thickened ) however has very poor intake . 1. Aspiration pneumonia - improving clinically, pt now afebrile -cont IV Zosyn and Azithro - Consulted Dr strong Pulmonary - Dr Strong rec using Coughilator to help clear secretions -cont Duoneb - Plan for LANCE placement to cont IV abx and resp tx 2. Sepsis ( POA) with Acinetobacter sp. Bacteremia cont IV Zosyn pt clinically improving 3. Coffee Ground Emesis - cont IV Protonix -GI consulted -monitor H/H 4. DM II with hyperglycemia - Accucheck with coverage - hold off on any oral hypoglycemics since pt's PO intake is poor 5. Dementia d/c Exelon patch as pt occ gets very lethargic 6. ALS - Supportive treatment - PT/OT - as per pt's wish NO PEG placement 7. CAD - consulted Dr [place] Cardiology - d/c ASA due to poss GIB #. DVT prophylaxis with SCD off Lovenox due to coffee ground emesis #. Code Status: DNR/DNI as discussed with Surrogate decision maker - spouse Tiffanie
--- NOTE | 2017-03-13 13:34 | CP.PCM.PN ---
Subjective - Date & Time of Evaluation Date of Evaluation: 03/13/17 Time of Evaluation: 13:30 - Subjective Subjective: GI Pt s&e. NAEON. Denies F/C/N/V/D/CP/SOB/melena/hematochezia/hematemesis. Tolerating diet. Per family, no more episodes of coffee ground emesis . Objective - Vital Signs/Intake and Output Vital Signs (last 24 hours): Temp Pulse Resp BP Pulse Ox 98.3 F 93 H 18 133/65 99 03/13/17 07:31 03/13/17 08:57 03/13/17 07:31 03/13/17 08:57 03/13/17 07:31 - Medications Medications: Current Medications Albuterol/Ipratropium (Duoneb 3 Mg/0.5 Mg (3 Ml) Ud) 3 ml INH RQ6 [facility] Last Admin: 03/13/17 07:16 Dose: 3 ml Azithromycin 500 mg/ Sodium (Chloride) 250 mls @ 250 mls/hr IVPB DAILY [facility] PRN Reason: Protocol Last Admin: 03/13/17 08:56 Dose: 250 mls/hr Piperacillin Sod/Tazobactam Sod (Zosyn 3.375 Gm Iv Premix) 3.375 gm in 50 mls @ 50 mls/hr IVPB Q6 [facility] PRN Reason: Protocol Last Admin: 03/13/17 08:59 Dose: 50 mls/hr Insulin Human Lispro (Humalog) 0 units SC 0000,0600,1200,1800 [facility] PRN Reason: Protocol Last Admin: 03/13/17 11:53 Dose: 1 unit Metoclopramide HCl (Reglan) 10 mg IVP Q6 PRN PRN Reason: Nausea/Vomiting Stop: 03/14/17 06:45 Last Admin: 03/12/17 07:05 Dose: 10 mg Metoprolol Succinate (Toprol Xl) 50 mg PO DAILY [facility] Last Admin: 03/13/17 08:57 Dose: 50 mg Pantoprazole Sodium (Protonix Inj) 40 mg IVP Q12 [facility] Last Admin: 03/13/17 08:56 Dose: 40 mg - Labs Labs: 03/13/17 05:25 03/13/17 05:25 PT 12.2 Seconds (9.8-13.1) 03/06/17 20:29 INR 1.1 (0.9-1.2) 03/06/17 20:29 APTT 25.6 Seconds (25.6-37.1) 03/06/17 20:29 - Constitutional Appears: No Acute Distress - Head Exam Head Exam: ATRAUMATIC, NORMAL INSPECTION, NORMOCEPHALIC - Eye Exam Eye Exam: EOMI, Normal appearance, PERRL Pupil Exam: NORMAL ACCOMODATION, PERRL - ENT Exam ENT Exam: Mucous Membranes Moist, Normal Exam - Neck Exam Neck Exam: Full ROM, Normal Inspection. absent: Lymphadenopathy - Respiratory Exam Respiratory Exam: Clear to Ausculation Bilateral, NORMAL BREATHING PATTERN - Cardiovascular Exam Cardiovascular Exam: REGULAR RHYTHM, +S1, +S2. absent: Murmur - GI/Abdominal Exam GI & Abdominal Exam: Soft, Normal Bowel Sounds. absent: Distended, Guarding, Rigid, Tenderness - Extremities Exam Extremities Exam: Normal Capillary Refill, Normal Inspection. absent: Joint Swelling, Pedal Edema - Back Exam Back Exam: NORMAL INSPECTION - Neurological Exam Neurological Exam: Alert, Awake, CN II-XII Intact, Oriented x3 - Psychiatric Exam Psychiatric exam: Normal Affect, Normal Mood - Skin Skin Exam: Dry, Intact, Normal Color, Warm Assessment and Plan - Assessment and Plan (Free Text) Assessment: 72 M with an episode of Coffee ground emesis: Improved -Resume dysphagia diet -Pt refused PEG -PPI DW Dr. Linares
[2017-03-14] MEDS: Insulin Lispro (humaLOG) 100 Units/ml Inj SC SCH ×2 (00:30→06:19)
[2017-03-14] MEDS: Albuterol-Ipratrop 3 mg / 0.5 (3 ml) UD INH SCH (00:59)
[2017-03-14] MEDS ORDERED: Piperacillin/Tazobact 3.375 GM in Sodium Chloride 0.9% 100 ML IVPB SCH (04:20)
[2017-03-14] MEDS: Metoprolol Succinate 50 mg XL Tab PO SCH (08:45)
[2017-03-14] MEDS: Azithromycin 500 MG in Sodium Chloride 0.9% 250 ML IVPB SCH (08:46)
--- NOTE | 2017-03-14 09:11 | CP.PCM.PN ---
Objective - Vital Signs/Intake and Output Vital Signs (last 24 hours): Temp Pulse Resp BP Pulse Ox 97.9 F 89 21 143/81 96 03/14/17 07:30 03/14/17 08:45 03/14/17 07:30 03/14/17 08:45 03/14/17 07:30 - Medications Medications: Current Medications Azithromycin 500 mg/ Sodium (Chloride) 250 mls @ 250 mls/hr IVPB DAILY [facility] PRN Reason: Protocol Last Admin: 03/14/17 08:46 Dose: 250 mls/hr Piperacillin Sod/Tazobactam (Sod 3.375 gm/ Sodium Chloride) 100 mls @ 100 mls/ hr IVPB Q6 [facility] PRN Reason: Protocol Last Admin: 03/14/17 04:25 Dose: 100 mls/hr Insulin Human Lispro (Humalog) 0 units SC 0000,0600,1200,1800 [facility] PRN Reason: Protocol Last Admin: 03/14/17 06:19 Dose: Not Given Metoprolol Succinate (Toprol Xl) 50 mg PO DAILY [facility] Last Admin: 03/14/17 08:45 Dose: 50 mg Pantoprazole Sodium (Protonix Inj) 40 mg IVP Q12 [facility] Last Admin: 03/14/17 08:45 Dose: 40 mg - Labs Labs: 03/13/17 05:25 03/13/17 05:25 PT 12.2 Seconds (9.8-13.1) 03/06/17 20:29 INR 1.1 (0.9-1.2) 03/06/17 20:29 APTT 25.6 Seconds (25.6-37.1) 03/06/17 20:29
--- NOTE | 2017-03-14 09:36 | CP.PCM.PN ---
Subjective - Date & Time of Evaluation Date of Evaluation: 03/14/17 Time of Evaluation: 09:20 - Subjective Subjective: Clinically unchanged Unable to comprehend simple commands or verbalise his thoughts in an intelligible manner Nutrition is poor due to tendency to aspirate Coughs ++ but unable to expectorate Afebrile with stable sinus rhythm BP 126/70 mm Hg No signs of CHF On IV ABx Spoke with Dr. Strong re placement with plans of eventual return home Prognosis remains unchanged Spoke with pt's today Objective - Vital Signs/Intake and Output Vital Signs (last 24 hours): Temp Pulse Resp BP Pulse Ox 97.9 F 89 21 143/81 96 03/14/17 07:30 03/14/17 08:45 03/14/17 07:30 03/14/17 08:45 03/14/17 07:30 - Medications Medications: Current Medications Azithromycin 500 mg/ Sodium (Chloride) 250 mls @ 250 mls/hr IVPB DAILY [facility] PRN Reason: Protocol Last Admin: 03/14/17 08:46 Dose: 250 mls/hr Piperacillin Sod/Tazobactam (Sod 3.375 gm/ Sodium Chloride) 100 mls @ 100 mls/ hr IVPB Q6 [facility] PRN Reason: Protocol Last Admin: 03/14/17 04:25 Dose: 100 mls/hr Insulin Human Lispro (Humalog) 0 units SC 0000,0600,1200,1800 [facility] PRN Reason: Protocol Last Admin: 03/14/17 06:19 Dose: Not Given Metoprolol Succinate (Toprol Xl) 50 mg PO DAILY [facility] Last Admin: 03/14/17 08:45 Dose: 50 mg Pantoprazole Sodium (Protonix Inj) 40 mg IVP Q12 [facility] Last Admin: 03/14/17 08:45 Dose: 40 mg - Labs Labs: 03/13/17 05:25 03/13/17 05:25 PT 12.2 Seconds (9.8-13.1) 03/06/17 20:29 INR 1.1 (0.9-1.2) 03/06/17 20:29 APTT 25.6 Seconds (25.6-37.1) 03/06/17 20:29
--- NOTE | 2017-03-14 10:51 | CP.PCM.DIS ---
Provider - Provider Date of Admission: 03/06/17 20:46 Attending physician: Harlan Herring Primary care physician: Dr. Strong Consults: Cardiology consult pulmonary consult GI consult Neurology consult Time Spent in preparation of Discharge (in minutes): 15 Hospital Course - Lab Results Lab Results: Micro Results 03/10/17 12:10 Blood Blood Culture - Preliminary NO GROWTH AFTER 3 DAYS 03/10/17 12:30 Blood Blood Culture - Preliminary NO GROWTH AFTER 3 DAYS 03/06/17 21:07 Blood-Venous Blood Culture - Final NO GROWTH AFTER 5 DAYS 03/06/17 21:07 Blood-Venous Gram Stain - Final TEST NOT PERFORMED 03/08/17 13:37 Urine,Catheterized Urine Culture - Final No Growth (<1,000 CFU/ML) 03/06/17 20:29 Blood-Venous Blood Culture - Final Acinetobacter Species 03/06/17 20:29 Blood-Venous Gram Stain - Final Most Recent Lab Values WBC 15.5 K/uL (4.8-10.8) H 03/13/17 05:25 RBC 4.39 Mil/uL (4.40-5.90) L 03/13/17 05:25 Hgb 13.6 g/dL (12.0-18.0) 03/13/17 05:25 Hct 39.6 % (35.0-51.0) 03/13/17 05:25 MCV 90.3 fl (80.0-94.0) 03/13/17 05:25 MCH 31.0 pg (27.0-31.0) 03/13/17 05:25 MCHC 34.4 g/dL (33.0-37.0) 03/13/17 05:25 RDW 13.7 % (11.5-14.5) 03/13/17 05:25 Plt Count 230 K/uL (130-400) 03/13/17 05:25 MPV 8.8 fl (7.2-11.7) 03/12/17 07:25 Neut % (Auto) 89.5 % (50.0-75.0) H 03/12/17 07:25 Lymph % (Auto) 3.6 % (20.0-40.0) L 03/12/17 07:25 Gray % (Auto) 6.3 % (0.0-10.0) 03/12/17 07:25 Eos % (Auto) 0.3 % (0.0-4.0) 03/12/17 07:25 Baso % (Auto) 0.3 % (0.0-2.0) 03/12/17 07:25 Neut # 15.6 K/uL (1.8-7.0) H 03/12/17 07:25 Lymph # 0.6 K/uL (1.0-4.3) L 03/12/17 07:25 Gray # 1.1 K/uL (0.0-0.8) H 03/12/17 07:25 Eos # 0.0 K/uL (0.0-0.7) 03/12/17 07:25 Baso # 0.1 K/uL (0.0-0.2) 03/12/17 07:25 Neutrophils % (Manual) 87 % (42-75) H 03/12/17 07:25 Band Neutrophils % 2 % (0-2) 03/12/17 07:25 Lymphocytes % (Manual) 6 % (20-50) L 03/12/17 07:25 Reactive Lymphs % 1 % (0-0) H 03/06/17 20:29 Monocytes % (Manual) 5 % (0-10) 03/12/17 07:25 Platelet Estimate Normal (NORMAL) 03/12/17 07:25 Large Platelets Present 03/12/17 07:25 Giant Platelets Present 03/12/17 07:25 RBC Morphology Normal (NORMAL) 03/06/17 20:29 Anisocytosis (manual) Slight 03/12/17 07:25 PT 12.2 Seconds (9.8-13.1) 03/06/17 20:29 INR 1.1 (0.9-1.2) 03/06/17 20:29 APTT 25.6 Seconds (25.6-37.1) 03/06/17 20:29 Sodium 141 mmol/l (132-148) 03/13/17 05:25 Potassium 3.5 MMOL/L (3.6-5.0) L 03/13/17 05:25 Chloride 107 mmol/L (98-107) 03/13/17 05:25 Carbon Dioxide 25 mmol/L (22-30) 03/13/17 05:25 Anion Gap 13 (10-20) 03/13/17 05:25 BUN 9 mg/dl (9-20) 03/13/17 05:25 Creatinine 0.6 mg/dl (0.8-1.5) L 03/13/17 05:25 Est GFR ( Amer) > 60 03/13/17 05:25 Est GFR (Non-Af Amer) > 60 03/13/17 05:25 POC Glucose (mg/dL) 131 mg/dL (65-110) H 03/14/17 05:43 Random Glucose 143 mg/dL (75-110) H 03/13/17 05:25 Hemoglobin A1c 5.9 % (4.2-6.5) 03/07/17 05:25 Lactic Acid 2.3 MMOL/L (0.7-2.1) H 03/07/17 00:34 Calcium 9.2 mg/dL (8.4-10.2) 03/13/17 05:25 Total Bilirubin 1.2 mg/dl (0.2-1.3) 03/09/17 06:25 AST 32 U/L (17-59) 03/09/17 06:25 ALT 73 U/L (21-72) H D 03/09/17 06:25 Alkaline Phosphatase 87 U/L (38-126) 03/09/17 06:25 Troponin I < 0.0120 ng/mL (0.00-0.120) 03/06/17 20:29 NT-Pro-B Natriuret Pep 122 pg/ml (0-900) 03/06/17 20:29 Total Protein 5.9 G/DL (6.3-8.2) L 03/09/17 06:25 Albumin 3.3 g/dL (3.5-5.0) L 03/09/17 06:25 Globulin 2.6 gm/dL (2.2-3.9) 03/09/17 06:25 Albumin/Globulin Ratio 1.3 (1.0-2.1) 03/09/17 06:25 Urine Color Laura (YELLOW) 03/08/17 13:37 Urine Clarity Cloudy (Clear) 03/08/17 13:37 Urine pH 5.0 (5.0-8.0) 03/08/17 13:37 Ur Specific Violet 1.040 (1.003-1.030) H 03/08/17 13:37 Urine Protein 30 mg/dL (NEGATIVE) 03/08/17 13:37 Urine Glucose (UA) 50 mg/dL (Normal) 03/08/17 13:37 Urine Ketones Negative mg/dL (NEGATIVE) 03/08/17 13:37 Urine Blood Negative (NEGATIVE) 03/08/17 13:37 Urine Nitrate Negative (NEGATIVE) 03/08/17 13:37 Urine Bilirubin Small (NEGATIVE) 03/08/17 13:37 Urine Urobilinogen 4.0 mg/dL (0.2-1.0) 03/08/17 13:37 Ur Leukocyte Esterase Neg Brent/uL (Negative) 03/08/17 13:37 Urine RBC (Auto) 5 /hpf (0-3) H 03/08/17 13:37 Urine Microscopic WBC 5 /hpf (0-5) 03/08/17 13:37 Urine Bacteria Rare (<OCC) 03/08/17 13:37 Hyaline Casts 3-5 /hpf (0-2) H 03/08/17 13:37 Blood Type B POSITIVE 03/12/17 14:27 Blood Type Confirm B POSITIVE 03/12/17 14:30 Antibody Screen Negative 03/12/17 14:27 BBK History Checked No verified bt 03/12/17 14:27 - Hospital Course Hospital Course: 72 years old male with hx of ALS,rapidly progressive decline , CAD s/p CABG 15 years ago , Dementia, COPD, and DM II,bed bound, was brought in bec of dyspnea and cough . Pt was also noted to have difficulty in swallowing.On the day of admission he appeared lethargic, diaphoretic, dyspneic and slightly hypotensive.He was admitted with diagnosis of sepsis secondary to RLL Aspiration pneumonia and started on IV Rocephin, Zithromax and Vancomycin. His blood cultures were reported positive for Acinetobacter resistant to rocephin and sensitive to Zosyn. Antibiotics changed to Zosyn (03/07)and Zithromax As per PMD and family patient has shown rapid decline in the last 3 months and is unable to communicate.Given his condition and rapid decline, palliative care and hospice were discussed with family . Family at present does not want hospice care but would like to finish IV antibiotics and send patient to [facility] for physical therapy.They decided DNR/DNI status . Patient was evaluated by speech therapist bedside and with barium swallow due to his poor PO intake and question for aspiration.As per barium swallow there is no aspiration but patient will need assistance with feeding to avoid aspiration and diet switched to pureed with nectar thick liquids. At present , pt is afebrile, leukocytosis resolved. He is unable to clear secretions from his airway. Pulmonary recommended cough assist devices and he did well. Patient has guarded prognosis. Will discharge to LTACH today . Continue Zosyn and zithromax for 5 more days 1. Aspiration pneumonia improving clinically, pt now afebrile cont IV Zosyn and Azithro for 5 more days ( # 8 today ) Consulted Dr strong Pulmonary Dr Strong rec using Coughilator to help clear secretions cont Duoneb d/c to LTACH 2. Sepsis ( POA) with Acinetobacter sp. Bacteremia cont IV Zosyn ( sensitive to Zosyn ) # 8 today . Continue 5 more days pt clinically improving 3. Coffee Ground Emesis resolved cont IV Protonix GI consulted H/H stable 4. DM II with hyperglycemia Accucheck with coverage hold off on any oral hypoglycemics since pt's PO intake is poor 5. Dementia d/c Exelon patch as pt occ gets very lethargic 6. ALS Supportive treatment DNR/DNI guarded prognosis d/c to LTACH continue physical therapy 7. CAD consulted Dr Colunga Cardiology d/c ASA due to poss GIB stable 8. DVT prophylaxis with SCD off Lovenox due to coffee ground emesis #. Code Status: DNR/DNI as discussed with Surrogate decision maker - spouse Tiffanie Discharge Exam - Head Exam Head Exam: ATRAUMATIC, NORMAL INSPECTION, NORMOCEPHALIC Additional comments: elderly, frail, weak,unbale to follow all commands and answer all questions denies any pain - Eye Exam Eye Exam: EOMI, Normal appearance, PERRL Pupil Exam: NORMAL ACCOMODATION - ENT Exam ENT Exam: Mucous Membranes Moist, Normal Exam - Neck Exam Neck exam: Normal Inspection - Respiratory Exam Respiratory Exam: Clear to PA & Lateral, NORMAL BREATHING PATTERN. absent: Rhonchi, Wheezes, Respiratory Distress - Cardiovascular Exam Cardiovascular Exam: REGULAR RHYTHM, RRR, +S1, +S2. absent: JVD - GI/Abdominal Exam GI & Abdominal Exam: Normal Bowel Sounds, Soft. absent: Guarding, Rebound, Tenderness - Rectal Exam Rectal Exam: Deferred - Extremities Exam Extremities exam: normal capillary refill, normal inspection, pedal pulses present - Neurological Exam Neurological exam: Alert Additional comments: minimally verbal - Psychiatric Exam Psychiatric exam: Flat Affect - Skin Skin Exam: Dry, Pallor, Warm Discharge Plan - Discharge Medications Prescriptions: Azithromycin 500MG/NS 250ml [Zithromax 500mg in NS] 500 mg IV DAILY #5 bag Piperacill/Tazo 3.375gm in Dex [Zosyn 3.375 Gm IV] 3.375 gm IVPB Q8 #15 bag - Follow Up Plan Condition: FAIR Disposition: TRANSF TO SNF Patient education suggested?: Yes Instructions: Community Acquired Pneumonia (DC), Bacteremia (DC), Amyotrophic Lateral Sclerosis (DC) Referrals: Devin Colunga MD [Staff Provider] -
--- NOTE | 2017-03-14 11:05 | CP.PCM.PN ---
Subjective - Date & Time of Evaluation Date of Evaluation: 03/14/17 Time of Evaluation: 10:30 - Subjective Subjective: He has been able to use cough assist device without a problem with respiratory therapist. Successfully able to expectorate a small amount of yellow colored sputum. Has some degree of improved breath sounds post cough assist. Remains afebrile, but there has been some increase in the leukocyte count. Has remained on Zosyn/Zithromax; this may need to be changed. Initial blood culture did grow acinetobacter. Maybe meropenem, possibly with clinda or flagyl would be a better choice. The above antibiotic would require ID consult. Objective - Vital Signs/Intake and Output Vital Signs (last 24 hours): Temp Pulse Resp BP Pulse Ox 97.9 F 89 21 143/81 96 03/14/17 07:30 03/14/17 08:45 03/14/17 07:30 03/14/17 08:45 03/14/17 07:30 - Medications Medications: Current Medications Azithromycin 500 mg/ Sodium (Chloride) 250 mls @ 250 mls/hr IVPB DAILY DYLAN PRN Reason: Protocol Last Admin: 03/14/17 08:46 Dose: 250 mls/hr Piperacillin Sod/Tazobactam (Sod 3.375 gm/ Sodium Chloride) 100 mls @ 100 mls/ hr IVPB Q6 DYLAN PRN Reason: Protocol Last Admin: 03/14/17 04:25 Dose: 100 mls/hr Insulin Human Lispro (Humalog) 0 units SC 0000,0600,1200,1800 DYLAN PRN Reason: Protocol Last Admin: 03/14/17 06:19 Dose: Not Given Metoprolol Succinate (Toprol Xl) 50 mg PO DAILY PENDING SALE TO [facility] Last Admin: 03/14/17 08:45 Dose: 50 mg Pantoprazole Sodium (Protonix Inj) 40 mg IVP Q12 DYLAN Last Admin: 03/14/17 08:45 Dose: 40 mg - Labs Labs: 03/13/17 05:25 03/13/17 05:25 PT 12.2 Seconds (9.8-13.1) 03/06/17 20:29 INR 1.1 (0.9-1.2) 03/06/17 20:29 APTT 25.6 Seconds (25.6-37.1) 03/06/17 20:29 Assessment and Plan - Assessment and Plan (Free Text) Assessment: Aspiration pneumonia with respiratory muscle dysfunction/weakness secondary to neuromuscular disease.
[2017-03-14 15:51] VITALS: BP 153/82; PULSE 75; RESP 19; TEMP 98.4; O2SAT 94
== END 2017-03-14 18:09 | DRG 177 ==
LOC: H.ER 19:17 → H.ERHOLD 20:46 → H.MEDSURG1 22:19
PROVIDERS: ADMIT Internal Medicine; ATTEND Internal Medicine
DX: J69.0 Pneumonitis due to inhalation of food and vomit (principal); A41.59 Other Gram-negative sepsis; G12.21 Amyotrophic lateral sclerosis; K92.2 Gastrointestinal hemorrhage, unspecified; E11.65 Type 2 diabetes mellitus with hyperglycemia; G31.09 Other frontotemporal neurocognitive disorder; F02.80 Dementia in other diseases classified elsewhere, unspecified severity, without behavioral disturbance, psychotic disturbance, mood disturbance, and anxiety; Z86.73 Personal history of transient ischemic attack (TIA), and cerebral infarction without residual deficits; I25.10 Atherosclerotic heart disease of native coronary artery without angina pectoris; Z95.1 Presence of aortocoronary bypass graft; Z87.891 Personal history of nicotine dependence; Z66 Do not resuscitate; R47.1 Dysarthria and anarthria; Z74.01 Bed confinement status; I10 Essential (primary) hypertension; J44.9 Chronic obstructive pulmonary disease, unspecified; R13.10 Dysphagia, unspecified